=== PATIENT | female | born 1980 | race Caucasian/White ===

== ENCOUNTER 2016-08-13 03:16 | Emergency (ER) | payer SELFPAY ==
[2016-08-13 03:17] VITALS: BMI 37.0
--- NOTE | 2016-08-13 04:23 | C.PDOC ---
History Of Present Illness 36 year old female presents to the ED with complaints of intermittent difficulty swallowing for four days and feeling as though her ears are "covered. " She states she is able to tolerate liquids but when she is eating solids it feels as though they are stuck and can not go down to continue being digested. Patient notes a history of diabetes but states medication ran out 3-4 months ago and has been unable to afford medications. Patient denies any fever, chills , or nausea. Time Seen by Provider: 08/13/16 03:40 Chief Complaint (Nursing): ENT Problem History Per: Patient History/Exam Limitations: None Onset/Duration Of Symptoms: Days (4 days ) Current Symptoms Are (Timing): Still Present Quality (Ear): Other (feels as though they are covered or plugged) Anticoagulant/Antiplatlet Use?: No Recent Aspirin Use: Unknown Past Medical History Reviewed: Historical Data, Nursing Documentation, Vital Signs Vital Signs: Last Vital Signs Temp 97.7 F 08/13/16 06:06 Pulse 102 H 08/13/16 06:06 Resp 18 08/13/16 06:06 BP 109/70 08/13/16 06:06 Pulse Ox 98 08/13/16 07:29 - Medical History PMH: Diabetes, Hyperthyroidism, Hypothyroidism (NO MEDICATIONS AT THIS TIME) - [facility] Procedures BILAT TUBAL DESTRUCT NEC (02/28/14) LOW CERVICAL (02/28/14) Family History: States: Diabetes, Hypertension - Social History Hx Tobacco Use: No Hx Alcohol Use: No Hx Substance Use: No - Immunization History Hx Tetanus Toxoid Vaccination: Yes Hx Influenza Vaccination: Yes Hx Pneumococcal Vaccination: Yes Review Of Systems Constitutional: Negative for: Fever, Chills ENT: Positive for: Ear Pain, Other (difficulty swallowing ) Cardiovascular: Negative for: Chest Pain, Palpitations Respiratory: Negative for: Cough, Shortness of Breath Gastrointestinal: Negative for: Nausea, Vomiting, Abdominal Pain, Diarrhea Physical Exam - Physical Exam Additional Physical Exam Comments: Constitutional: No acute distress. WDWN. Head: Normocephalic. Atraumatic. Eyes: PERRL. EOMI. ENT: Moist mucous membranes. No tonsillar enlargement. no pharyngeal erythema, no exudate. Neck: Supple. Non-tender anterior neck, no tracheal tenderness Cardiovascular: Regular rate and rhythm. Chest: No tenderness. Respiratory: Clear to auscultation bilaterally. GI: Soft. Non-tender. Non-distended. Normoactive bowel sounds. No rebound. No guarding. Back: No CVA or mid-line tenderness. Musculoskeletal: No tenderness or swelling of extremities. Skin: No rash. Neurologic: Alert, no focal deficit. ED Course And Treatment - Laboratory Results Result Diagrams: 08/13/16 04:37 08/13/16 04:37 O2 Sat by Pulse Oximetry: 98 (room air ) - CT Scan/US CT Neck Without Intravenous Contrast Other Rad Studies (CT/US): Read By Radiologist, Radiology Report Reviewed CT/US Interpretation: IMPRESSION: Prominence of the tonsillar tissue, correlate with tonsillitis. Prominent jugular and posterior triangle lymph nodes, likely reactive. Medical Decision Making Medical Decision Making: pt feeling well, in no acute distress, pt with no obstruction in esophagus, will d/c with antibiotic for tonsillitis, re-start on metformin and f[facility]. Disposition Counseled Patient/Family Regarding: Studies Performed, Diagnosis, Need For Followup, Rx Given - Disposition Referrals: [facility] [Outside] [facility] [Outside] Bruce Daniels MD [Staff Provider] - Disposition: HOME/ ROUTINE Disposition Time: 07:18 Condition: STABLE Additional Instructions: [place] los antibiticos y el ibuprofeno segn lo prescrito. Seguir con la clnica mdica y con el mdico de [place] / [place] / [place] en los prximos tidwell. Vuelva al ER para un dolor peor o cualquier otro relacionado con los sntomas. Also take metformin as prescribed. Prescriptions: Amoxicillin 500 mg PO TID #30 tablet Ibuprofen [Motrin] 600 mg PO TID #30 tab MetFORMIN [glucoPHAGE] 500 mg PO BID #60 tab Print Language: MAORI - Clinical Impression Clinical Impression: Acute tonsillitis, Diabetes mellitus - Scribe Statement The provider has reviewed the documentation as recorded by the Scribe Emily Egan All medical record entries made by the Scribe were at my direction and personally dictated by me. I have reviewed the chart and agree that the record accurately reflects my personal performance of the history, physical exam, medical decision making, and the department course for this patient. I have also personally directed, reviewed, and agree with the discharge instructions and disposition.
[2016-08-13 04:45] LABS: BASO % 0.3 % (0.0-2.0); EOS # 0.2 K/uL (0.0-0.7); EOS % 2.9 % (0.0-4.0); HEMATOCRIT 38.9 % (34.0-47.0); LYMPH # 3.4 K/uL (1.0-4.3); LYMPH % 52.1 % (20.0-40.0); MEAN CELL VOLUME 78.7 fL (81.0-99.0); MEAN CORPUSCULAR HEMOGLOBIN 25.7 pg (27.0-31.0); MEAN CORPUSCULAR HGB CONC 32.7 g/dL (33.0-37.0); MEAN PLATELET VOLUME 9.6 fL (7.2-11.7); MONO # 0.6 K/uL (0.0-0.8); MONO % 9.5 % (0.0-10.0); NRBC % 0.1 % (0.0-2.0); RED CELL DISTRIBUTION WIDTH 13.3 % (11.5-14.5); WHITE BLOOD COUNT 6.6 K/uL (4.8-10.8)
[2016-08-13 04:47] LABS: CHLORIDE 101 mmol/L (98-107); POTASSIUM 3.8 mmol/L (3.6-5.2); SODIUM 136 mmol/L (132-148)
[2016-08-13 04:49] LABS: BILIRUBIN,TOTAL 0.6 mg/dL (0.2-1.3); CARBON DIOXIDE 21 mmol/L (22-30); GFR AFRICAN-AMERICAN > 60
[2016-08-13 04:50] LABS: ALB/GLOB RATIO 1.2 (1.0-2.1); ALKALINE PHOSPHATASE 146 U/L (38-126); ALT/SGPT 46 U/L (9-52); AST/SGOT 23 U/L (14-36); BLOOD UREA NITROGEN 13 mg/dL (7-17); CALCIUM 9.1 mg/dl (8.6-10.4); GLUCOSE,RANDOM 187 mg/dL (65-105); TOTAL PROTEIN 6.5 g/dL (6.3-8.3)
[2016-08-13 06:07] VITALS: BP 109/70; PULSE 102; RESP 18; TEMP 97.7
[2016-08-13 07:17] VITALS: O2SAT 98
--- NOTE | 2016-08-13 12:37 | CT ---
PROCEDURE: CT NECK WITHOUT CONTRAST HISTORY: eval for blockage/obstruction COMPARISON: None. TECHNIQUE: CT of the neck without intravenous contrast. Coronal and sagittal reformats generated. Radiation dose: DLP 555.18 mGy-cm This CT exam was performed using one or more of the following dose reduction techniques: Automated exposure control, adjustment of the mA and/or kV according to patient size, and/or use of iterative reconstruction technique. FINDINGS: NASOPHARYNX: Unremarkable. SUPRAHYOID NECK: Unremarkable oropharynx. No foreign body identified. Prominent palatine tonsils. No adenoidal tonsil prominence. Parapharyngeal space is clear. INFRAHYOID NECK: Unremarkable larynx, hypopharynx, and supraglottic space. Vocal cords intact. MASS: None. GLANDS: Parotid and submandibular glands unremarkable. Normal size thyroid gland, without nodule. LYMPH NODES: Shotty level 1 and 2 cervical nodes without significant enlarged nodes identified. CERVICAL SPINE: No fracture or focal lesion. OTHER FINDINGS: None. IMPRESSION: Mild prominence of the palatine tonsils. Please correlate for tonsillitis. No significant cervical lymphadenopathy. Shotty subcentimeter nodes are identified. The remainder of the examination is unremarkable. Preliminary interpretation of this examination was reported by [facility] at 5:14 a.m. on 08/13/2016. There is concurrence of this report with the preliminary interpretation.
== END 2016-08-13 07:33 | disposition home or self-care (01) ==
LOC: C.ER 03:16
DX: J03.90 Acute tonsillitis, unspecified (principal); E11.9 Type 2 diabetes mellitus without complications

== ENCOUNTER 2017-11-24 00:36 | Inpatient (IN) | payer MEDICAID, OTHER ==
[2017-11-24 00:36] VITALS: BMI 37.0
[2017-11-24] MEDS ORDERED: Sodium Chloride 0.9% 1,000 ML ONE ×2 (01:11→01:30)
[2017-11-24] MEDS ORDERED: Vancomycin 1 gm/NS 200 ml 1 GM/200 ML BAG IVPB STA (01:15)
[2017-11-24] MEDS ORDERED: Piperacill/Tazo 4.5gm in Dex 4.5 GM/100 ML BAG IVPB STA (01:15)
[2017-11-24] MEDS ORDERED: Sodium Chloride 0.9% 2,000 ML IV ONE (01:15)
--- NOTE | 2017-11-24 01:15 | C.PDOC ---
History Of Present Illness 37 y/o female presents to the ED complaining of fever and chills since Thursday, worsened today. Associated with a non-productive cough. Patient also states she was taken off thyroid medication for the last 6 months. Otherwise she denies any vomiting, diarrhea, abdominal pain, dysuria, hematuria, chest tightness, or SOB. Time Seen by Provider: 11/24/17 01:14 Chief Complaint (Nursing): Fever History Per: Patient History/Exam Limitations: no limitations Onset/Duration Of Symptoms: Days (x3) Current Symptoms Are (Timing): Still Present Sick Contacts (Context): None Associated Symptoms: Fever, Chills, Cough Ear Symptoms: Bilateral: None Recent travel outside of the [place]: No Past Medical History Reviewed: Historical Data, Nursing Documentation, Vital Signs Vital Signs: Last Vital Signs Temp 103.0 F H 11/24/17 01:05 Pulse 145 H 11/24/17 01:05 Resp 20 11/24/17 01:05 BP 139/67 11/24/17 01:05 Pulse Ox 95 11/24/17 01:05 - Medical History PMH: Diabetes, HTN, Hyperthyroidism, Hypothyroidism (NO MEDICATIONS AT THIS TIME) - [facility] Procedures BILAT TUBAL DESTRUCT NEC (02/28/14) LOW CERVICAL (02/28/14) Family History: States: Diabetes, Hypertension - Social History Hx Tobacco Use: No Hx Alcohol Use: No Hx Substance Use: No - Immunization History Hx Tetanus Toxoid Vaccination: Yes Hx Influenza Vaccination: No Hx Pneumococcal Vaccination: No Review Of Systems Constitutional: Positive for: Fever, Chills Cardiovascular: Negative for: Chest Pain, Palpitations Respiratory: Negative for: Shortness of Breath Gastrointestinal: Negative for: Vomiting, Abdominal Pain, Diarrhea Genitourinary: Negative for: Dysuria, Frequency, Hematuria Neurological: Negative for: Weakness, Dizziness Physical Exam - Physical Exam Appears: Non-toxic, In Acute Distress (appears in moderate discomfort) Skin: Warm, Dry Head: Normacephalic Eye(s): bilateral: Normal Inspection Ear(s): Bilateral: Normal Throat: Normal (OP clear), No Erythema, No Exudate Neck: Trachea Midline, Other (bilateral nodularity of the thyroid, non-tender) Chest: Symmetrical Cardiovascular: Rhythm Regular (but tachycardic) Respiratory: No Rales, Rhonchi (scattered), No Wheezing Gastrointestinal/Abdominal: Bowel Sounds (good), Soft, No Tenderness, No Distention Extremity: Bilateral: Atraumatic, Normal Color And Temperature Pulses: Left Dorsalis Pedis: Normal, Right Dorsalis Pedis: Normal Neurological/Psych: Oriented x3 ED Course And Treatment - Laboratory Results Result Diagrams: 11/24/17 01:24 11/24/17 01:24 ECG: Interpreted By Me, Viewed By Me ECG Rhythm: Sinus Tachycardia (137), Nonspecific Changes O2 Sat by Pulse Oximetry: 95 (RA) Pulse Ox Interpretation: Normal - Radiology CXR: Interpreted by Me, Viewed By Me Progress Note: Blood work, coag panel, thyroid panel, and urine ordered. Blood and urine cultures sent. CXR and EKG ordered and reviewed. Administered IV fluids and Tylenol 975mg PO. Patient started on IV vanco and zosyn. pt developed some itching after vanco - lungs cta, speaking in complete sentences - iv benadryl, pepcid and solumedrol given. Streeter and Wartofsky 's score 55 Critical Care Time - Critical Care Note Total Time (in mins): 30 Documented critical care: time excludes all time spent performing seperately billable procedures. Disposition Discussed With DrBeth: Nils Oconnor Comment: accepted the pt on his service and took over the care at 2:40AM Doctor Will See Patient In The: ED Counseled Patient/Family Regarding: Studies Performed, Diagnosis - Disposition Disposition: HOSPITALIZED Disposition Time: 01:15 Condition: GUARDED - POA Present On Arrival: None - Clinical Impression Clinical Impression: Fever, Hyperthyroidism, Thyroiditis - Scribe Statement The provider has reviewed the documentation as recorded by the Scribe (Pat Casanova) Provider Attestation: All medical record entries made by the Scribe were at my direction and personally dictated by me. I have reviewed the chart and agree that the record accurately reflects my personal performance of the history, physical exam, medical decision making, and the department course for this patient. I have also personally directed, reviewed, and agree with the discharge instructions and disposition. Decision To Admit - Pt Status Changed To: Hospital Disposition Of: Inpatient - Admit Certification Admit to Inpatient:: After my assessment, the patient will require hospitalization for at least two midnights. This is because of the severity of symptoms shown, intensity of services needed, and/or the medical risk in this patient being treated as an outpatient. - InPatient: Physician Admission Certification:: After my assessment, the patient will require hospitalization for at least two midnights. This is because of the severity of symptoms shown, intensity of services needed, and/or the medical risk in this patient being treated as an outpatient. - . Bed Request Type: Regular Patient Diagnosis: Fever, Hyperthyroidism, Thyroiditis
[2017-11-24 01:28] LABS: HEMOGLOBIN 13.3 g/dL (11.0-16.0); RBC 5.06 Mil/uL (3.80-5.20); WHITE BLOOD COUNT 7.6 K/uL (4.8-10.8)
[2017-11-24 01:29] LABS: BASO % 0.2 % (0.0-2.0); EOS # 0.2 K/uL (0.0-0.7); EOS % 2.8 % (0.0-4.0); LYMPH # 1.1 K/uL (1.0-4.3); LYMPH % 14.7 % (20.0-40.0); MEAN CELL VOLUME 77.8 fL (81.0-99.0); MEAN CORPUSCULAR HEMOGLOBIN 26.3 pg (27.0-31.0); MEAN CORPUSCULAR HGB CONC 33.8 g/dL (33.0-37.0); MEAN PLATELET VOLUME 8.9 fL (7.2-11.7); MONO # 0.3 K/uL (0.0-0.8); MONO % 4.1 % (0.0-10.0); NEUT # 5.9 K/uL (1.8-7.0); NEUT % 78.2 % (50.0-75.0); NRBC % 0.4 % (0.0-2.0); RED CELL DISTRIBUTION WIDTH 12.7 % (11.5-14.5)
[2017-11-24] MEDS ORDERED: Vancomycin 1 GM 1 GM/250 ML BAG IVPB ONE (01:30)
[2017-11-24 01:40] LABS: INR 1.1; PROTHROMBIN TIME 12.1 SECONDS (9.7-12.2)
[2017-11-24 01:52] LABS: VENOUS BLOOD GAS BASE EXCESS 0.6 mmol/L (0.0-2.0); VENOUS BLOOD GAS PCO2 36 mmHg (40-60); VENOUS BLOOD GAS PO2 37 mm/Hg (30-55); VENOUS BLOOD PH 7.44 (7.32-7.43)
[2017-11-24 01:58] LABS: ALB/GLOB RATIO 1.3 (1.0-2.1); ALBUMIN 4.2 g/dL (3.5-5.0); ALT/SGPT 73 U/L (9-52); AST/SGOT 36 U/L (14-36); BLOOD UREA NITROGEN 7 mg/dL (7-17); CALCIUM 9.1 mg/dl (8.6-10.4); GFR NON-AFRICAN AMERICAN > 60
[2017-11-24 02:02] LABS: HCG,QUALITATIVE URINE NEGATIVE (NEGATIVE)
[2017-11-24 02:03] LABS: SQUAMOUS EPITHIAL 1 /hpf (0-5); URINE BILIRUBIN NEGATIVE (NEGATIVE); URINE BLOOD NEGATIVE (NEGATIVE); URINE CLARITY Clear (Clear); URINE COLOR Yellow (YELLOW); URINE GLUCOSE (UA) 3+ mg/dL (Normal); URINE LEUKOCYTE ESTERASE NEG Leu/uL (Negative); URINE PROTEIN NEGATIVE (NEGATIVE); URINE UROBILINOGEN NORMAL mg/dL (0.2-1.0)
[2017-11-24] MEDS ORDERED: DiphenhydrAMINE 50 mg/ml Inj IVP STA (02:14)
[2017-11-24] MEDS ORDERED: DiphenhydrAMINE 50 mg/ml Inj ONE (02:18)
[2017-11-24] MEDS ORDERED: Propranolol 1 mg/mL Inj IVP STA (02:29)
[2017-11-24] MEDS ORDERED: Propranolol 1 mg/mL Inj ONE (02:49)
--- NOTE | 2017-11-24 03:00 | CP.PCM.HP ---
<Noreen Veronica - Last Filed: 11/24/17 03:00> History of Present Illness - History of Present Illness History of Present Illness: Noreen Veronica PGY1 H&P for Dr. Oconnor Pt is a 37yo F with PMH DM, HTN, hyperTH who presents to ED complaining of fever, chills, and cough for 3 days. She reports worsening of symptoms today, prompting her to come to ED. She reports taking advil and theraflu at home with little relief. She denies any sick contacts or recent travel. She reports associ ated nausea, palpitations, sweating, and abdominal pain. She denies any chest pain, dizziness, vomiting, diarrhea, dysuria. In the ED, pt was tachycardic at 137 and febrile at 103F. Pt was given IVF, tylenol, vanc, zosyn. She had an allergic reaction to vanc (rash), so it was stopped and she was given solumedrol, benedryl. Pt was given propanalol 40 PO and 1 IV for HR control. SxH: b/l tubal ligation, SocH: denies tobacco, etoh, or recreational drug use FamH: father, brother DM Allergies: NKDA Meds: propanolol 10, methimazol 10 PMD: none Present on Admission - Present on Admission Any Indicators Present on Admission: No Review of Systems - Review of Systems Review of Systems: as per HPI Past Patient History - Infectious Disease Hx of Infectious Diseases: None - Past Social History Smoking Status: Never Smoked - CARDIAC Hx Hypertension: Yes - ENDOCRINE/METABOLIC Hx Hyperthyroidism: Yes Hx Hypothyroidism: Yes (NO MEDICATIONS AT THIS TIME) - PSYCHIATRIC Hx Substance Use: No - SURGICAL HISTORY Hx Section: Yes Hx Hysterectomy: Yes Other/Comment: BTL - ANESTHESIA Hx Anesthesia: Yes Hx Anesthesia Reactions: No Meds Allergies/Adverse Reactions: Allergies Allergy/AdvReac Type Severity Reaction Status Date / Time vancomycin Allergy RASH Verified 11/24/17 02:27 Physical Exam - Constitutional Appears: No Acute Distress - Head Exam Head Exam: ATRAUMATIC, NORMOCEPHALIC - Eye Exam Eye Exam: EOMI, Normal appearance, PERRL Pupil Exam: NORMAL ACCOMODATION - ENT Exam ENT Exam: Mucous Membranes Moist, Normal Exam - Neck Exam Neck exam: Negative for: Lymphadenopathy - Respiratory Exam Respiratory Exam: Clear to Auscultation Bilateral, NORMAL BREATHING PATTERN. absent: Rales, Rhonchi, Wheezes, Respiratory Distress - Cardiovascular Exam Cardiovascular Exam: Tachycardia, REGULAR RHYTHM, +S1, +S2. absent: Gallop, Rubs, Systolic Murmur - GI/Abdominal Exam GI & Abdominal Exam: Normal Bowel Sounds, Soft. absent: Distended, Guarding, Tenderness - Extremities Exam Extremities exam: Positive for: normal inspection. Negative for: pedal edema, tenderness - Neurological Exam Neurological exam: Alert, CN II-XII Intact, Oriented x3 - Psychiatric Exam Psychiatric exam: Normal Affect, Normal Mood - Skin Skin Exam: Diaphoretic, Warm Results - Vital Signs Recent Vital Signs: Last Vital Signs Temp 100.3 F H 11/24/17 02:33 Pulse 137 H 11/24/17 02:33 Resp 20 11/24/17 02:33 BP 105/49 L 11/24/17 02:33 Pulse Ox 95 11/24/17 02:58 - Labs Result Diagrams: 11/24/17 01:24 11/24/17 01:24 Labs: Laboratory Results - last 24 hr 11/24/17 11/24/17 11/24/17 01:24 01:24 01:24 WBC 7.6 RBC 5.06 Hgb 13.3 Hct 39.4 MCV 77.8 L MCH 26.3 L MCHC 33.8 RDW 12.7 Plt Count 131 MPV 8.9 Neut % (Auto) 78.2 H Lymph % (Auto) 14.7 L [place] % (Auto) 4.1 Eos % (Auto) 2.8 Baso % (Auto) 0.2 Neut # (Auto) 5.9 Lymph # (Auto) 1.1 [place] # (Auto) 0.3 Eos # (Auto) 0.2 Baso # (Auto) 0.0 PT 12.1 INR 1.1 APTT 34 pO2 VBG pH VBG pCO2 VBG HCO3 VBG Total CO2 VBG O2 Sat (Calc) VBG Base Excess VBG Potassium Glucose Lactate Sodium 134 Potassium 3.8 Chloride 98 Carbon Dioxide 23 Anion Gap 17 BUN 7 Creatinine 0.3 L Est GFR ( Amer) > 60 Est GFR (Non-Af Amer) > 60 Random Glucose 282 H Calcium 9.1 Phosphorus 3.8 Magnesium 1.5 L Total Bilirubin 0.3 AST 36 D ALT 73 H D Alkaline Phosphatase 214 H Total Protein 7.3 Albumin 4.2 Globulin 3.1 Albumin/Globulin Ratio 1.3 TSH 3rd Generation < 0.02 L Venous Blood Potassium Urine Color Urine Clarity Urine pH Ur Specific [place] Urine Protein Urine Glucose (UA) Urine Ketones Urine Blood Urine Nitrate Urine Bilirubin Urine Urobilinogen Ur Leukocyte Esterase Urine WBC (Auto) Urine RBC (Auto) Ur Squamous Epith Cells Urine HCG, Qual 11/24/17 11/24/17 01:46 01:54 WBC RBC Hgb Hct MCV MCH MCHC RDW Plt Count MPV Neut % (Auto) Lymph % (Auto) [place] % (Auto) Eos % (Auto) Baso % (Auto) Neut # (Auto) Lymph # (Auto) [place] # (Auto) Eos # (Auto) Baso # (Auto) PT INR APTT pO2 37 VBG pH 7.44 H VBG pCO2 36 L VBG HCO3 24.7 VBG Total CO2 25.6 VBG O2 Sat (Calc) 72.4 H VBG Base Excess 0.6 VBG Potassium 3.5 L Glucose 266 H Lactate 1.3 Sodium 132.0 Potassium Chloride 102.0 Carbon Dioxide Anion Gap BUN Creatinine Est GFR ( Amer) Est GFR (Non-Af Amer) Random Glucose Calcium Phosphorus Magnesium Total Bilirubin AST ALT Alkaline Phosphatase Total Protein Albumin Globulin Albumin/Globulin Ratio TSH 3rd Generation Venous Blood Potassium 3.5 L Urine Color Yellow Urine Clarity Clear Urine pH 6.0 Ur Specific [place] 1.030 Urine Protein Negative Urine Glucose (UA) 3+ H Urine Ketones Negative Urine Blood Negative Urine Nitrate Negative Urine Bilirubin Negative Urine Urobilinogen Normal Ur Leukocyte Esterase Neg Urine WBC (Auto) < 1 Urine RBC (Auto) < 1 Ur Squamous Epith Cells 1 Urine HCG, Qual Negative Assessment & Plan - Assessment and Plan (Free Text) Assessment: 37yo F with PMH DM, HTN, hyperTH who presents to ED complaining of fever, chills, and cough and fulfills SIRS criteria. She is admitted for further ev aluation and treatment. Plan: SIRS - Tmax 103F - HR 137 - WBC 7.6 - CXR - EKG sinus tachy - f/u BCx, UCx - f/u procal - UA negative for leuk esterase, nitrates - continue zosyn and ampicillin Hyperthyroid - TSH <0.02 - f/u free T3, free T4 - CT soft tissue neck ordered - US thyroid ordered - Endo consulted, f/u recs Hypomagnesemia - Mg 1.5, repleted - continue to monitor DM - random glucose 282 - sliding scale low protocol - accuchecks q6h PPX: DVT: SCDs GI: pepcid HHD Case reviewed and plan discussed with Dr. Oconnor. <Nils Oconnor - Last Filed: 11/24/17 06:27> Results - Vital Signs Recent Vital Signs: Last Vital Signs Temp 99.8 F H 11/24/17 05:35 Pulse 104 H 11/24/17 05:33 Resp 21 11/24/17 05:20 BP 128/69 11/24/17 05:08 Pulse Ox 95 11/24/17 06:23 - Labs Result Diagrams: 11/24/17 01:24 11/24/17 01:24 Labs: Laboratory Results - last 24 hr 11/24/17 11/24/17 11/24/17 01:05 01:24 01:24 WBC 7.6 RBC 5.06 Hgb 13.3 Hct 39.4 MCV 77.8 L MCH 26.3 L MCHC 33.8 RDW 12.7 Plt Count 131 MPV 8.9 Neut % (Auto) 78.2 H Lymph % (Auto) 14.7 L [place] % (Auto) 4.1 Eos % (Auto) 2.8 Baso % (Auto) 0.2 Neut # (Auto) 5.9 Lymph # (Auto) 1.1 [place] # (Auto) 0.3 Eos # (Auto) 0.2 Baso # (Auto) 0.0 PT 12.1 INR 1.1 APTT 34 pO2 VBG pH VBG pCO2 VBG HCO3 VBG Total CO2 VBG O2 Sat (Calc) VBG Base Excess VBG Potassium Glucose Lactate Sodium Potassium Chloride Carbon Dioxide Anion Gap BUN Creatinine Est GFR ( Amer) Est GFR (Non-Af Amer) POC Glucose (mg/dL) 281 H Random Glucose Calcium Phosphorus Magnesium Total Bilirubin AST ALT Alkaline Phosphatase Total Protein Albumin Globulin Albumin/Globulin Ratio Free T4 Total T3 TSH 3rd Generation Venous Blood Potassium Urine Color Urine Clarity Urine pH Ur Specific [place] Urine Protein Urine Glucose (UA) Urine Ketones Urine Blood Urine Nitrate Urine Bilirubin Urine Urobilinogen Ur Leukocyte Esterase Urine WBC (Auto) Urine RBC (Auto) Ur Squamous Epith Cells Urine HCG, Qual 11/24/17 11/24/17 11/24/17 01:24 01:46 01:54 WBC RBC Hgb Hct MCV MCH MCHC RDW Plt Count MPV Neut % (Auto) Lymph % (Auto) [place] % (Auto) Eos % (Auto) Baso % (Auto) Neut # (Auto) Lymph # (Auto) [place] # (Auto) Eos # (Auto) Baso # (Auto) PT INR APTT pO2 37 VBG pH 7.44 H VBG pCO2 36 L VBG HCO3 24.7 VBG Total CO2 25.6 VBG O2 Sat (Calc) 72.4 H VBG Base Excess 0.6 VBG Potassium 3.5 L Glucose 266 H Lactate 1.3 Sodium 134 132.0 Potassium 3.8 Chloride 98 102.0 Carbon Dioxide 23 Anion Gap 17 BUN 7 Creatinine 0.3 L Est GFR ( Amer) > 60 Est GFR (Non-Af Amer) > 60 POC Glucose (mg/dL) Random Glucose 282 H Calcium 9.1 Phosphorus 3.8 Magnesium 1.5 L Total Bilirubin 0.3 AST 36 D ALT 73 H D Alkaline Phosphatase 214 H Total Protein 7.3 Albumin 4.2 Globulin 3.1 Albumin/Globulin Ratio 1.3 Free T4 Total T3 TSH 3rd Generation < 0.02 L Venous Blood Potassium 3.5 L Urine Color Yellow Urine Clarity Clear Urine pH 6.0 Ur Specific [place] 1.030 Urine Protein Negative Urine Glucose (UA) 3+ H Urine Ketones Negative Urine Blood Negative Urine Nitrate Negative Urine Bilirubin Negative Urine Urobilinogen Normal Ur Leukocyte Esterase Neg Urine WBC (Auto) < 1 Urine RBC (Auto) < 1 Ur Squamous Epith Cells 1 Urine HCG, Qual Negative 11/24/17 11/24/17 11/24/17 03:13 03:13 03:24 WBC RBC Hgb Hct MCV MCH MCHC RDW Plt Count MPV Neut % (Auto) Lymph % (Auto) [place] % (Auto) Eos % (Auto) Baso % (Auto) Neut # (Auto) Lymph # (Auto) [place] # (Auto) Eos # (Auto) Baso # (Auto) PT INR APTT pO2 VBG pH VBG pCO2 VBG HCO3 VBG Total CO2 VBG O2 Sat (Calc) VBG Base Excess VBG Potassium Glucose Lactate Sodium Potassium Chloride Carbon Dioxide Anion Gap BUN Creatinine Est GFR ( Amer) Est GFR (Non-Af Amer) POC Glucose (mg/dL) 215 H Random Glucose Calcium Phosphorus Magnesium Total Bilirubin AST ALT Alkaline Phosphatase Total Protein Albumin Globulin Albumin/Globulin Ratio Free T4 4.05 H Total T3 3.61 H TSH 3rd Generation Venous Blood Potassium Urine Color Urine Clarity Urine pH Ur Specific [place] Urine Protein Urine Glucose (UA) Urine Ketones Urine Blood Urine Nitrate Urine Bilirubin Urine Urobilinogen Ur Leukocyte Esterase Urine WBC (Auto) Urine RBC (Auto) Ur Squamous Epith Cells Urine HCG, Qual Assessment & Plan - Date & Time Date: 11/24/17 (I have seen and examined the patient. I agree with the findings and plan of care as documented by Dr. Veronica. Patient positive for SIRS criteria. Check urine and CXR. Possible thyroiditis. TSH very low. Ampilllicin for now. Vanco and Zosyn for now with some reaction from Vanco. Consult to Endo. Lactate negative. Check Thyroid hormone levels. Monitor for acute changes.) Time: 06:24 Attending/Attestation - Attestation I have personally seen and examined this patient.: Yes I have fully participated in the care of the patient.: Yes I have reviewed all pertinent clinical information: Yes
[2017-11-24] MEDS ORDERED: Magnesium Oxide 400 mg Tab UD PO STA (03:23)
[2017-11-24] MEDS ORDERED: Piperacillin/Tazobact 3.375 GM in Sodium Chloride 100 ML IVPB SCH ×2 (03:30→10:00)
[2017-11-24] MEDS ORDERED: Glucagon Recombinant 1 mg Inj IM PRN (03:31)
[2017-11-24] MEDS ORDERED: Dextrose 50% SYRINGE Inj (50 ml) IV PRN (03:31)
--- NOTE | 2017-11-24 03:43 | CP.PCM.CON ---
History of Present Illness - History of Present Illness History of Present Illness: Attending: Dr Oconnor PMD: None Reason for consult: Critical care Management Chief Complaint: Fever/ Tachycardia/ Chills The patient was seen and examined in the ED with no family member present HPI: The hx is obtainde from the patient and after review of the medical and laboratory records. She is a 37 years old female with hx of DM, Hypo and Hyperthyroidism who referred stop taking her Methimazole for 4-5 years. She told other staff members that she stopped 6 months ago. She comes with 3 days of fever, chills generalized body aches, palpitation, nausea, headache, lightheadedness and a non productive cough. In the ED her Heart Rate was 145 with a temperature of 103F. She wa initially given Antibiotics relating to pulmonary pathology, then the TSH result came as <0.02. PMH: HTN; DM; Hypothyroidism ; hyperthyroidism PSH: Cesarian Section X1; Tubal Ligation? SH: Denies Alcohol; No illegal drug use; No Cigarette Smoking; live with the Family; Work in the [employer] FH: Father and Brother with DM Allergies: NKDA Allergic reaction to Vancomycin in the ED tonight Medication: Propranol 10mg TID; Methimazole 10mg TID Review of Systems - Constitutional Constitutional: Chills, Fever, Headache - EENT Eyes: absent: Blurred Vision, Diplopia, Floaters, Requires Corrective Lenses Ears: absent: Decreased Hearing, Ear Discharge, Tinnitus Nose/Mouth/Throat: absent: Epistaxis, Nasal Congestion, Sinus Pain, Sinus Pressure - Cardiovascular Cardiovascular: Lightheadedness. absent: Chest Pain, Dyspnea, Edema - Respiratory Respiratory: Cough. absent: Dyspnea, Wheezing, Stridor - Gastrointestinal Gastrointestinal: Nausea. absent: Abdominal Pain, Diarrhea, Vomiting - Genitourinary Genitourinary: absent: Dysuria, Flank Pain, Urinary Frequency - Musculoskeletal Musculoskeletal: Myalgias. absent: Back Pain, Joint Swelling - Integumentary Integumentary: Pruritus, Rash. absent: Skin Ulcer, Sores, Striae, Swelling - Neurological Neurological: Headaches. absent: Confusion, Focal Weakness - Psychiatric Psychiatric: absent: Anxiety, Depression, Panic Attacks - Endocrine Endocrine: Palpitations. absent: Polydipsia, Polyphagia, Polyuria - Hematologic/Lymphatic Hematologic: absent: Easy Bleeding, Easy Bruising Past Patient History - Infectious Disease Hx of Infectious Diseases: None - Past Medical History & Family History Past Medical History?: Yes - Past Social History Smoking Status: Never Smoked Chewing Tobacco Use: No Cigar Use: No Alcohol: None Drugs: Denies Home Situation {Lives}: With Family - CARDIAC Hx Hypertension: Yes - PULMONARY Hx Respiratory Disorders: No - NEUROLOGICAL Hx Neurological Disorder: No - HEENT Hx HEENT Problems: No - RENAL Hx Chronic Kidney Disease: No - ENDOCRINE/METABOLIC Hx Diabetes Mellitus Type 2: Yes Hx Hyperthyroidism: Yes Hx Hypothyroidism: Yes (NO MEDICATIONS AT THIS TIME) - HEMATOLOGICAL/ONCOLOGICAL Hx Blood Disorders: No - INTEGUMENTARY Hx Dermatological Problems: No - MUSCULOSKELETAL/RHEUMATOLOGICAL Hx Musculoskeletal Disorders: No - GASTROINTESTINAL Hx Gastrointestinal Disorders: No - GENITOURINARY/GYNECOLOGICAL Hx Genitourinary Disorders: No - PSYCHIATRIC Hx Anxiety: No Hx Substance Use: No - SURGICAL HISTORY Hx Surgeries: Yes Hx Section: Yes Hx Hysterectomy: Yes Other/Comment: BTL - ANESTHESIA Hx Anesthesia: Yes Hx Anesthesia Reactions: No Meds Allergies/Adverse Reactions: Allergies Allergy/AdvReac Type Severity Reaction Status Date / Time vancomycin Allergy RASH Verified 11/24/17 02:27 - Medications Medications: Current Medications Acetaminophen (Tylenol 325mg Tab) 975 mg PO ONCE PRN PRN Reason: Fever >100.4 F Last Admin: 11/24/17 01:33 Dose: 975 mg Dextrose (Dextrose 50% Inj) 0 ml IV STAT PRN; Protocol PRN Reason: Hypoglycemia Protocol Dextrose (Glutose 15) 0 gm PO ONCE PRN; Protocol PRN Reason: Hypoglycemia Protocol Famotidine (Pepcid) 40 mg PO DAILY [facility] Glucagon (Glucagen Diagnostic Kit) 0 mg IM STAT PRN; Protocol PRN Reason: Hypoglycemia Protocol Ampicillin 250 mg/ Sodium (Chloride) 100 mls @ 100 mls/hr IVPB Q8H [facility]; Protocol Piperacillin Sod/Tazobactam (Sod 3.375 gm/ Sodium Chloride) 100 mls @ 200 mls/hr IVPB Q8H [facility]; Protocol Dextrose (Dextrose 5% In Water 1000 Ml) 1,000 mls @ 0 mls/hr IV .Q0M PRN; Protocol PRN Reason: Hypoglycemia Protocol Piperacillin Sod/Tazobactam (Sod 3.375 gm/ Sodium Chloride) 100 mls @ 200 mls/hr IVPB Q8H [facility]; Protocol Insulin Human Regular (Novolin R) 0 unit SC ACHS [facility]; Protocol Magnesium Oxide (Mag-Ox) 400 mg PO STAT STA Stop: 11/24/17 03:24 Ondansetron HCl (Zofran Tab) 4 mg PO Q8H PRN PRN Reason: Nausea/Vomiting Propranolol HCl (Inderal) 10 mg PO TID [facility] Physical Exam - Constitutional Appears: No Acute Distress - Head Exam Head Exam: ATRAUMATIC, NORMAL INSPECTION, NORMOCEPHALIC - Eye Exam Eye Exam: EOMI, Normal appearance - ENT Exam ENT Exam: Mucous Membranes Moist, Normal Exam, Normal External Ear Exam - Neck Exam Neck exam: Positive for: Full Rom, Normal Inspection. Negative for: Lymphadeno erica, Tenderness - Respiratory Exam Respiratory Exam: Clear to Auscultation Bilateral. absent: Rales, Rhonchi, Wheezes - Cardiovascular Exam Cardiovascular Exam: Tachycardia, REGULAR RHYTHM, +S1, +S2 - GI/Abdominal Exam GI & Abdominal Exam: Normal Bowel Sounds, Soft. absent: Mass, Organomegaly, Tenderness - Rectal Exam Rectal Exam: Deferred - Extremities Exam Extremities exam: Positive for: full ROM, normal inspection. Negative for: calf tenderness, pedal edema - Back Exam Back exam: NORMAL INSPECTION. absent: CVA tenderness (L), CVA tenderness (R) - Neurological Exam Neurological exam: Alert, CN II-XII Intact, Oriented x3, Reflexes Normal - Psychiatric Exam Psychiatric exam: Normal Affect, Normal Mood - Skin Skin Exam: Dry, Intact, Normal Color, Warm Results - Vital Signs Recent Vital Signs: Last Vital Signs Temp 101.0 F H 11/24/17 03:32 Pulse 119 H 11/24/17 03:32 Resp 20 11/24/17 03:32 BP 112/59 L 11/24/17 03:32 Pulse Ox 99 11/24/17 03:32 - Labs Result Diagrams: 11/24/17 01:24 11/24/17 01:24 Labs: Laboratory Results - last 24 hr 11/24/17 11/24/17 11/24/17 01:05 01:24 01:24 WBC 7.6 RBC 5.06 Hgb 13.3 Hct 39.4 MCV 77.8 L MCH 26.3 L MCHC 33.8 RDW 12.7 Plt Count 131 MPV 8.9 Neut % (Auto) 78.2 H Lymph % (Auto) 14.7 L Meagher % (Auto) 4.1 Eos % (Auto) 2.8 Baso % (Auto) 0.2 Neut # (Auto) 5.9 Lymph # (Auto) 1.1 Meagher # (Auto) 0.3 Eos # (Auto) 0.2 Baso # (Auto) 0.0 PT 12.1 INR 1.1 APTT 34 pO2 VBG pH VBG pCO2 VBG HCO3 VBG Total CO2 VBG O2 Sat (Calc) VBG Base Excess VBG Potassium Glucose Lactate Sodium Potassium Chloride Carbon Dioxide Anion Gap BUN Creatinine Est GFR ( Amer) Est GFR (Non-Af Amer) POC Glucose (mg/dL) 281 H Random Glucose Calcium Phosphorus Magnesium Total Bilirubin AST ALT Alkaline Phosphatase Total Protein Albumin Globulin Albumin/Globulin Ratio TSH 3rd Generation Venous Blood Potassium Urine Color Urine Clarity Urine pH Ur Specific [place] Urine Protein Urine Glucose (UA) Urine Ketones Urine Blood Urine Nitrate Urine Bilirubin Urine Urobilinogen Ur Leukocyte Esterase Urine WBC (Auto) Urine RBC (Auto) Ur Squamous Epith Cells Urine HCG, Qual 11/24/17 11/24/17 11/24/17 01:24 01:46 01:54 WBC RBC Hgb Hct MCV MCH MCHC RDW Plt Count MPV Neut % (Auto) Lymph % (Auto) Meagher % (Auto) Eos % (Auto) Baso % (Auto) Neut # (Auto) Lymph # (Auto) Meagher # (Auto) Eos # (Auto) Baso # (Auto) PT INR APTT pO2 37 VBG pH 7.44 H VBG pCO2 36 L VBG HCO3 24.7 VBG Total CO2 25.6 VBG O2 Sat (Calc) 72.4 H VBG Base Excess 0.6 VBG Potassium 3.5 L Glucose 266 H Lactate 1.3 Sodium 134 132.0 Potassium 3.8 Chloride 98 102.0 Carbon Dioxide 23 Anion Gap 17 BUN 7 Creatinine 0.3 L Est GFR ( Amer) > 60 Est GFR (Non-Af Amer) > 60 POC Glucose (mg/dL) Random Glucose 282 H Calcium 9.1 Phosphorus 3.8 Magnesium 1.5 L Total Bilirubin 0.3 AST 36 D ALT 73 H D Alkaline Phosphatase 214 H Total Protein 7.3 Albumin 4.2 Globulin 3.1 Albumin/Globulin Ratio 1.3 TSH 3rd Generation < 0.02 L Venous Blood Potassium 3.5 L Urine Color Yellow Urine Clarity Clear Urine pH 6.0 Ur Specific [place] 1.030 Urine Protein Negative Urine Glucose (UA) 3+ H Urine Ketones Negative Urine Blood Negative Urine Nitrate Negative Urine Bilirubin Negative Urine Urobilinogen Normal Ur Leukocyte Esterase Neg Urine WBC (Auto) < 1 Urine RBC (Auto) < 1 Ur Squamous Epith Cells 1 Urine HCG, Qual Negative 11/24/17 03:24 WBC RBC Hgb Hct MCV MCH MCHC RDW Plt Count MPV Neut % (Auto) Lymph % (Auto) Meagher % (Auto) Eos % (Auto) Baso % (Auto) Neut # (Auto) Lymph # (Auto) Meagher # (Auto) Eos # (Auto) Baso # (Auto) PT INR APTT pO2 VBG pH VBG pCO2 VBG HCO3 VBG Total CO2 VBG O2 Sat (Calc) VBG Base Excess VBG Potassium Glucose Lactate Sodium Potassium Chloride Carbon Dioxide Anion Gap BUN Creatinine Est GFR ( Amer) Est GFR (Non-Af Amer) POC Glucose (mg/dL) 215 H Random Glucose Calcium Phosphorus Magnesium Total Bilirubin AST ALT Alkaline Phosphatase Total Protein Albumin Globulin Albumin/Globulin Ratio TSH 3rd Generation Venous Blood Potassium Urine Color Urine Clarity Urine pH Ur Specific [place] Urine Protein Urine Glucose (UA) Urine Ketones Urine Blood Urine Nitrate Urine Bilirubin Urine Urobilinogen Ur Leukocyte Esterase Urine WBC (Auto) Urine RBC (Auto) Ur Squamous Epith Cells Urine HCG, Qual - Imaging and Cardiology Chest x-ray Status: Image reviewed by me Additional comment: No infiltrate Assessment & Plan - Assessment and Plan (Free Text) Assessment: #. Hyerthyroidism with Thyroid Storm #. DM II uncontrolled #. Hypomagnesemia #. HTN Plan: 37 years old female with hx of DM, Hypo and Hyperthyroidism who referred stop t aking her Methimazole for 4-5 years. She told other staff members that she stopped 6 months ago. She comes with 3 days of fever, chills generalized body aches, palpitation, nausea, headache, lightheadedness and a non productive cough. In the ED her Heart Rate was 145 with a temperature of 103F. She wa initially given Antibiotics relating to pulmonary pathology, then the TSH result came as <0.02. #. Hyerthyroidism with Thyroid Storm - Consult Endocrinology Dr Espinoza - Tylenol for Fever - Propranolol 40mg Q6 - Methimazole 20mg Q6H -Hydrocortisone 100MG Q8H - IV Fluid NS #. DM II uncontrolled - IV Fluid NS - Regular Insulin sliding scale according to Accucheck - HbA1c #. Hypomagnesemia - Repleat Magnesium - Follow Electrolytes #. HTN - Follow Blood Pressures #. DVT Prophylaxis with SCD #. Full Code - Date & Time Date: 11/24/17 Time: 03:43
[2017-11-24] MEDS ORDERED: Dextrose 5%/0.45% NS 1,000 ML IV SCH (04:15)
[2017-11-24] MEDS ORDERED: (Novolin R) Insulin Human Regular 100 units/ml vial SC SCH (07:30)
--- NOTE | 2017-11-24 08:42 | RAD ---
Date of service: 11/24/2017 HISTORY: cough, fever COMPARISON: No prior. FINDINGS: LUNGS: No active pulmonary disease. PLEURA: No significant pleural effusion identified, no pneumothorax apparent. CARDIOVASCULAR: Normal. OSSEOUS STRUCTURES: No significant abnormalities. VISUALIZED UPPER ABDOMEN: Normal. OTHER FINDINGS: None. IMPRESSION: No active disease.
--- NOTE | 2017-11-24 08:54 | CP.PCM.PN ---
Subjective - Date & Time of Evaluation Date of Evaluation: 11/24/17 Time of Evaluation: 08:45 - Subjective Subjective: Seen and examined this morning. Patient is feeling better. Has mild neck pain.Mild cough,denies chest pain,no sob,no throat pain Patient has history of hyperthyroidism and takes Methimazole 10mg three times day and Propranolol 10mg three times a day. Objective - Vital Signs/Intake and Output Vital Signs (last 24 hours): Temp Pulse Resp BP Pulse Ox 99.8 F H 104 H 21 128/69 95 11/24/17 05:35 11/24/17 05:33 11/24/17 05:20 11/24/17 05:08 11/24/17 06:23 Intake and Output: 11/24/17 11/24/17 06:59 18:59 Intake Total 250 125 Balance 250 125 - Medications Medications: Current Medications Acetaminophen (Tylenol 325mg Tab) 975 mg PO ONCE PRN PRN Reason: Fever >100.4 F Last Admin: 11/24/17 01:33 Dose: 975 mg Acetaminophen (Tylenol 325mg Tab) 650 mg PO Q6 PRN PRN Reason: Fever >100.4 F Dextrose (Dextrose 50% Inj) 0 ml IV STAT PRN; Protocol PRN Reason: Hypoglycemia Protocol Dextrose (Glutose 15) 0 gm PO ONCE PRN; Protocol PRN Reason: Hypoglycemia Protocol Famotidine (Pepcid) 40 mg PO DAILY [facility] Glucagon (Glucagen Diagnostic Kit) 0 mg IM STAT PRN; Protocol PRN Reason: Hypoglycemia Protocol Hydrocortisone Sodium Succinate (Solu-Cortef) 100 mg IV Q8H [facility] Last Admin: 11/24/17 05:43 Dose: Not Given Ampicillin 250 mg/ Sodium (Chloride) 100 mls @ 100 mls/hr IVPB Q8H [facility]; Protocol Last Admin: 11/24/17 03:50 Dose: 100 mls/hr Dextrose (Dextrose 5% In Water 1000 Ml) 1,000 mls @ 0 mls/hr IV .Q0M PRN; Protocol PRN Reason: Hypoglycemia Protocol Dextrose/Sodium Chloride (Dextrose 5%/0.45% Ns 1000 Ml) 1,000 mls @ 125 mls/hr IV .Q8H [facility] Last Admin: 11/24/17 04:16 Dose: 125 mls/hr Insulin Human Regular (Novolin R) 0 unit SC ACHS [facility]; Protocol Last Admin: 11/24/17 08:26 Dose: 3 u Methimazole (Tapazole) 20 mg PO Q6H [facility] Last Admin: 11/24/17 04:16 Dose: 20 mg Ondansetron HCl (Zofran Tab) 4 mg PO Q8H PRN PRN Reason: Nausea/Vomiting Propranolol HCl (Inderal) 40 mg PO Q6H [facility] - Labs Labs: 11/24/17 01:24 11/24/17 01:24 PT 12.1 SECONDS (9.7-12.2) 11/24/17 01:24 INR 1.1 11/24/17 01:24 APTT 34 SECONDS (21-34) 11/24/17 01:24 - Constitutional Appears: No Acute Distress - Head Exam Head Exam: NORMAL INSPECTION - Eye Exam Eye Exam: EOMI, Normal appearance, PERRL Pupil Exam: NORMAL ACCOMODATION - ENT Exam ENT Exam: Mucous Membranes Moist - Neck Exam Neck Exam: Full ROM, Normal Inspection - Respiratory Exam Respiratory Exam: Clear to Ausculation Bilateral, NORMAL BREATHING PATTERN - Cardiovascular Exam Cardiovascular Exam: Tachycardia, REGULAR RHYTHM - GI/Abdominal Exam GI & Abdominal Exam: Soft, Normal Bowel Sounds - Extremities Exam Extremities Exam: Full ROM - Back Exam Back Exam: NORMAL INSPECTION - Neurological Exam Neurological Exam: Awake, Oriented x3 - Psychiatric Exam Psychiatric exam: Normal Affect, Normal Mood - Skin Skin Exam: Dry, Intact Assessment and Plan - Assessment and Plan (Free Text) Assessment: This is a 37years F with PMH DM, HTN, hyperthyroidism on Methimazole and propranolol who presents to ED complaining of fever, chills, and cough for 3 days. On admission patient had temp max 103F and tachycardia. she was admitted to ICU for observation Plan: 1.Thyroid storm Improving s/p Fever and tachycardia TSH <0.02,Free T4 4.05,T3 3.61 continue Methimazole 20mg po q6h,Propranolol 40 q6h 2.Hyperthyroidism continue Methimazole and follow Dr Espinoza 3.DM-Poorly controlled Her HA1c is 9.8 patient was not on medication started on lantus.continue insulin coverage follow sugar,diabetic diet 4.Fever/Recent cough Urine is negative for infection,chest x ray without infiltrate follow cultures to r/o infection Continue ampicillin,hydration 5.DVT prophylaxis-heparin Sc GI prophylaxis is on pepcid
[2017-11-24] MEDS: AMPicillin 250 MG in Sodium Chloride 0.9% 100 ML IVPB SCH ×2 (11:13→18:07)
[2017-11-24] MEDS ORDERED: (Novolog) Insulin Aspart, Recombinant 100 u/ml 10 ml vial SC ONE (11:31)
[2017-11-24] MEDS: (Novolin R) Insulin Human Regular 100 units/ml vial SC SCH ×3 (12:00→21:30)
--- NOTE | 2017-11-24 13:19 | US ---
Date of service: 11/24/2017 HISTORY: hyperthyroid TECHNIQUE: Sonographic evaluation of the thyroid gland. COMPARISON: Not available FINDINGS: RIGHT LOBE: Measures 5.9 x 2.6 x 2.5 cm. Homogeneous echotexture. Mild increased vascularity. Nodules: Hypoechoic solid nodule mid right lobe, 3 x 7 x 7 mm. No suspicious features. No other mass identified. LEFT LOBE: Measures 5.7 x 2.3 x 2.3 cm. Homogeneous echotexture. Mild increased vascularity. Nodules: None ISTHMUS: Measures 0.9 cm. Normal echotexture and flow. Nodules: None OTHER FINDINGS: None . IMPRESSION: Mild thyromegaly. Mildly hypervascular gland, nonspecific. 7 mm solid nodule mid right lobe of thyroid. Otherwise unremarkable.
--- NOTE | 2017-11-24 22:01 | CON ---
DATE: 11/24/2017 LOCATION: ICU, Room 6. HISTORY OF PRESENT ILLNESS: This is a 37-year-old female with known history of hyperthyroidism, previously on high dose methimazole medications some years ago, and apparently was taken off the above medications and switched over to Levophed replacement therapy as noted thereof. She admits to increasing bouts of dizziness and lightheadedness with generalized body weakness and pertaining chest pains and palpitations with progressive shortness of breath over the last few weeks prior to admission. She also admits to sudden onset of high fever with chills and rigors and productive cough prompting this subsequent admission. PAST MEDICAL HISTORY: As mentioned above, history of Graves disease with hyperthyroidism. Previously on high dose methimazole therapy. Apparently, her thyroid studies improved as noted. She developed eventual hypothyroidism based on Levothyroxine therapy which eventually discontinued because of again improved therapeutic levels as noted. She has type 2 diabetes previously on oral hypoglycemic therapy but has been off medications for few months now as noted. FAMILY HISTORY: Positive for hypertension and heart disease. SOCIAL HISTORY: The patient has a supportive family. No known substance use. REVIEW OF SYSTEMS: As mentioned above, admits to generalized body weakness with increasing bouts of dizziness and lightheadedness with bifrontal headaches as noted. Also admits to marked disrupted sleep patterns, worse in the last few weeks. The patient admits to sudden onset of precordial chest pain with palpitations and progressive shortness of breath, especially on exertion. Her oral intake has been variable with nausea and dyspepsia and hyper defecation. Also with exotic bouts of tremors in both upper and lower extremities. PHYSICAL EXAMINATION: GENERAL: This is an average built female, in no apparent distress. VITAL SIGNS: Blood pressure 140/80, pulse of 110 beats per minute and regular, temperature 103 on admission, respirations 20, height is 5 feet, weight 140 pounds. HEENT: Head is normocephalic. Eyes anicteric with pink conjunctivae. Funduscopy not possible at this time. Ears, nose, and throat, otherwise, normal. NECK: Supple. Thyroid gland is firm and nontender with no overt palpable nodules as noted. HEART: Hyperdynamic precordium. S1, S2 rapid and regular. LUNGS: Clear to auscultation. ABDOMEN: Flat and soft with positive bowel sounds. EXTREMITIES: No peripheral edema. Pulses are +2 bilaterally. LABORATORY DATA: Her hemoglobin A1c is 9.8% with glucose levels now at 295 to 497 and over 500 mg/dL with intercurrent IV steroids as given empirically. Chemistry showed a BUN of 7, sodium 134, potassium 3.8, chloride 98, CO2 23, glucose 282, creatinine 0.3, free T4 is 4.05 with a TSH of less than 0.02. ASSESSMENT: This is a 37-year-old female with overt thyrotoxicosis presenting here with marked hyperthyroidism, both historically, clinically, and biochemically, most likely related to Graves disease. However with the recent history of hypothyroidism, there also is a rare and remote possibility of having both thyroid antibodies, predisposing the patient to have the so called hashitoxicosis or a combination of both Linn and Grave's disease or autoimmune thyroiditis, predisposing the patient as mentioned to both hyperthyroidism and hypothyroidism in the lifetime. With the patient's aforementioned hyperadrenergic presentation with fever and rigors and chills and tachycardia, she clearly has thyroid crisis or near thyroid storm as noted thereof. PLAN OF MANAGEMENT: We will continue the suprapharmacologic dosing of Tapazole given as 20 mg every 6 hours and obtain a total thyroxine level or T4 which is more indicative of degree of hyperthyroidism than obtaining a free T4 level. We will obtain a thyroid peroxidase antibody and a thyroglobulin and also a thyroid stimulating immunoglobulin which will confirm the presence of the aforementioned thyroid conditions as noted. We will continue the beta blockade as given. We will follow and advised accordingly. Azul Espinoza MD
[2017-11-24] MEDS: (Lantus) Insulin Glargine, Recombinant SC SCH (22:10)
[2017-11-25] MEDS: AMPicillin 250 MG in Sodium Chloride 0.9% 100 ML IVPB SCH (03:45)
[2017-11-25 06:33] LABS: BASO % 0.2 % (0.0-2.0); EOS # 0.2 K/uL (0.0-0.7); EOS % 3.9 % (0.0-4.0); HEMOGLOBIN 13.1 g/dL (11.0-16.0); LYMPH % 21.4 % (20.0-40.0); MEAN CELL VOLUME 77.7 fL (81.0-99.0); MEAN CORPUSCULAR HEMOGLOBIN 26.4 pg (27.0-31.0); MEAN CORPUSCULAR HGB CONC 33.9 g/dL (33.0-37.0); MEAN PLATELET VOLUME 9.3 fL (7.2-11.7); MONO # 0.3 K/uL (0.0-0.8); MONO % 6.6 % (0.0-10.0); NEUT # 3.1 K/uL (1.8-7.0); NEUT % 67.9 % (50.0-75.0); NRBC % 0.1 % (0.0-2.0); RBC 4.96 Mil/uL (3.80-5.20); RED CELL DISTRIBUTION WIDTH 12.9 % (11.5-14.5); WHITE BLOOD COUNT 4.6 K/uL (4.8-10.8)
[2017-11-25 06:55] LABS: ALB/GLOB RATIO 1.2 (1.0-2.1); ALBUMIN 3.7 g/dL (3.5-5.0); ALT/SGPT 112 U/L (9-52); AST/SGOT 108 U/L (14-36); BLOOD UREA NITROGEN 14 mg/dL (7-17); CALCIUM 8.5 mg/dl (8.6-10.4); GFR NON-AFRICAN AMERICAN > 60
[2017-11-25 07:09] LABS: T4 23.4 ug/dL (5.5-11.0)
[2017-11-25] MEDS: (Novolin R) Insulin Human Regular 100 units/ml vial SC SCH ×5 (08:01→21:22)
[2017-11-25] MEDS ORDERED: DiphenhydrAMINE 50 mg/ml Inj IVP STA (09:25)
[2017-11-25] MEDS ORDERED: Sodium Chloride 0.9% 1,000 ML IV SCH (10:15)
[2017-11-25] MEDS: Saccharomyces Boulardi 250 mg Cap PO SCH ×2 (11:09→17:48)
[2017-11-25] MEDS ORDERED: Sodium Chloride 0.9% 500 ML IV ONE (11:44)
[2017-11-25] MEDS: Sodium Chloride 0.9% 1,000 ML IV SCH ×3 (12:30→21:03)
--- NOTE | 2017-11-25 15:51 | CT ---
Date of service: 11/25/17 CT abdomen and pelvis without IV contrast Indication: Rule out cholecystitis Technique: Contiguous axial images of the abdomen and pelvis. No oral or IV contrast administered. Coronal and Sagittal reformats generated and reviewed. This CT exam was performed using 1 or more of the following dose reduction techniques: Automated exposure control, adjustment of the MAA and/or kV according to patient size, and/or use of iterative reconstruction technique. Radiation dose: Total exam DLP = 660.18 mGy-cm. Comparison: None available Findings: 3 mm right middle lobe nodule. 7 mm and 6 mm left lower lobe pulmonary nodules. No visible consolidation, pleural effusion, or pneumothorax. The noncontrast liver, spleen, kidneys, pancreas, adrenal glands, and gallbladder appear grossly unremarkable. The stomach is nondistended. Lack of oral contrast limits evaluation for bowel pathology. The bowel loops appear within normal limits of caliber without evidence of intestinal obstruction. The appendix appears within normal limits of caliber. No secondary signs of acute appendicitis. There is no definite free air. Uterus is present. The urinary bladder appears unremarkable. No acute osseous abnormality is detected. Impression: There are multiple solid pulmonary nodules identified at the included lung bases as above. CT of the chest is not available. Recommend correlation with prior outside imaging if available. According to 2017 Fleischner criteria, if the patient is low risk, CT at 3-6 months is recommended, then consider CT at 18-24 months. The patient is high risk, CT at 3-6 months is recommended, then at 18-24 months.
--- NOTE | 2017-11-25 16:20 | CARD ---
APPROVED REPORT Date of service: 11/24/2017 EKG Measurement Heart [id number] <Conclusion> Sinus tachycardia Otherwise normal
--- NOTE | 2017-11-25 17:14 | CP.PCM.CON ---
History of Present Illness - History of Present Illness History of Present Illness: She is a 37 years old female admitted with 3 days of fever, chills generalized body aches, palpitation, nausea, headache, lightheadedness and a non productive cough. In the ED her Heart Rate was 145 with a temperature of 103F. started on Vanco/ zosyn then developed rashes abnormal CT chest noted- ? nodules PMH: HTN; DM; Hypothyroidism ; hyperthyroidism PSH: Cesarian Section X1; Tubal Ligation? SH: Denies Alcohol; No illegal drug use; No Cigarette Smoking; live with the Family; Work in the [employer] FH: Father and Brother with DM Allergies: NKDA Allergic reaction ? zosyn ampicillin Review of Systems - Constitutional Constitutional: Chills, Fever, Headache - EENT Eyes: absent: Blurred Vision, Diplopia, Floaters, Requires Corrective Lenses Ears: absent: Decreased Hearing, Ear Discharge, Tinnitus Nose/Mouth/Throat: absent: Epistaxis, Nasal Congestion, Sinus Pain, Sinus Pressure - Cardiovascular Cardiovascular: Lightheadedness. absent: Chest Pain, Dyspnea, Edema - Respiratory Respiratory: Cough. absent: Dyspnea, Wheezing, Stridor - Gastrointestinal Gastrointestinal: Nausea. absent: Abdominal Pain, Diarrhea, Vomiting - Genitourinary Genitourinary: absent: Dysuria, Flank Pain, Urinary Frequency - Musculoskeletal Musculoskeletal: Myalgias. absent: Back Pain, Joint Swelling - Integumentary Integumentary: Pruritus, Rash. absent: Skin Ulcer, Sores, Striae, Swelling - Neurological Neurological: Headaches. absent: Confusion, Focal Weakness - Psychiatric Psychiatric: absent: Anxiety, Depression, Panic Attacks - Endocrine Endocrine: Palpitations. absent: Polydipsia, Polyphagia, Polyuria - Hematologic/Lymphatic Hematologic: absent: Easy Bleeding, Easy Bruising Past Patient History - Infectious Disease Hx of Infectious Diseases: None - Past Medical History & Family History Past Medical History?: Yes - Past Social History Smoking Status: Never Smoked - CARDIAC Hx Hypertension: Yes - PULMONARY Hx Respiratory Disorders: No - NEUROLOGICAL Hx Neurological Disorder: No - HEENT Hx HEENT Problems: No - RENAL Hx Chronic Kidney Disease: No - ENDOCRINE/METABOLIC Hx Hyperthyroidism: Yes Hx Hypothyroidism: Yes (NO MEDICATIONS AT THIS TIME) - HEMATOLOGICAL/ONCOLOGICAL Hx Blood Disorders: No - INTEGUMENTARY Hx Dermatological Problems: No - MUSCULOSKELETAL/RHEUMATOLOGICAL Hx Musculoskeletal Disorders: No Hx Falls: No - GASTROINTESTINAL Hx Gastrointestinal Disorders: No - GENITOURINARY/GYNECOLOGICAL Hx Genitourinary Disorders: No - PSYCHIATRIC Hx Substance Use: No - SURGICAL HISTORY Hx Surgeries: Yes Hx Section: Yes Hx Hysterectomy: Yes Other/Comment: BTL - ANESTHESIA Hx Anesthesia: Yes Hx Anesthesia Reactions: No Meds Allergies/Adverse Reactions: Allergies Allergy/AdvReac Type Severity Reaction Status Date / Time ampicillin Allergy RASH Verified 11/25/17 09:22 vancomycin Allergy RASH Verified 11/24/17 02:27 - Medications Medications: Current Medications Acetaminophen (Tylenol 325mg Tab) 975 mg PO ONCE PRN PRN Reason: Fever >100.4 F Last Admin: 11/25/17 07:17 Dose: 975 mg Dextrose (Dextrose 50% Inj) 0 ml IV STAT PRN; Protocol PRN Reason: Hypoglycemia Protocol Dextrose (Glutose 15) 0 gm PO ONCE PRN; Protocol PRN Reason: Hypoglycemia Protocol Diphenhydramine HCl (Benadryl) 25 mg PO Q6 PRN PRN Reason: Itching / Pruritus Last Admin: 11/25/17 16:36 Dose: 25 mg Famotidine (Pepcid) 40 mg PO DAILY [facility] Last Admin: 11/25/17 12:53 Dose: Not Given Glucagon (Glucagen Diagnostic Kit) 0 mg IM STAT PRN; Protocol PRN Reason: Hypoglycemia Protocol Heparin Sodium (Porcine) (Heparin) 5,000 units SC Q8 [facility] Last Admin: 11/25/17 14:21 Dose: 5,000 units Dextrose (Dextrose 5% In Water 1000 Ml) 1,000 mls @ 0 mls/hr IV .Q0M PRN; Protocol PRN Reason: Hypoglycemia Protocol Sodium Chloride (Sodium Chloride 0.9%) 1,000 mls @ 150 mls/hr IV .Q6H40M [facility] Last Admin: 11/25/17 12:30 Dose: 150 mls/hr Ibuprofen (Motrin Tab) 600 mg PO QID PRN PRN Reason: Fever >100.4 F Last Admin: 11/25/17 16:32 Dose: 600 mg Insulin Glargine (Lantus) 20 unit SC HS [facility] Last Admin: 11/24/17 22:10 Dose: 20 u Insulin Human Regular (Novolin R) 0 unit SC ACHS [facility]; Protocol Last Admin: 11/25/17 16:33 Dose: 2 u Methimazole (Tapazole) 20 mg PO Q6H [facility] Last Admin: 11/25/17 16:33 Dose: 20 mg Ondansetron HCl (Zofran Tab) 4 mg PO Q8H PRN PRN Reason: Nausea/Vomiting Propranolol HCl (Inderal) 40 mg PO Q6H [facility] Last Admin: 11/25/17 10:30 Dose: Not Given Saccharomyces Boulardii (Florastor) 250 mg PO BID [facility] Last Admin: 11/25/17 11:09 Dose: 250 mg Physical Exam - Constitutional Appears: No Acute Distress - Head Exam Head Exam: ATRAUMATIC, NORMOCEPHALIC - Eye Exam Eye Exam: absent: Scleral icterus - ENT Exam ENT Exam: Mucous Membranes Dry - Neck Exam Neck exam: Negative for: Lymphadenopathy - Respiratory Exam Respiratory Exam: Decreased Breath Sounds - Cardiovascular Exam Cardiovascular Exam: REGULAR RHYTHM - GI/Abdominal Exam GI & Abdominal Exam: Diminished Bowel Sounds, Soft. absent: Tenderness - Rectal Exam Rectal Exam: Deferred - Exam Exam: NORMAL INSPECTION - Extremities Exam Extremities exam: Negative for: pedal edema - Back Exam Back exam: absent: CVA tenderness (L), CVA tenderness (R), paraspinal tenderness - Neurological Exam Neurological exam: Alert, CN II-XII Intact, Oriented x3, Reflexes Normal - Psychiatric Exam Psychiatric exam: Normal Mood - Skin Skin Exam: Dry, Rash Results - Vital Signs Recent Vital Signs: Last Vital Signs Temp 98.5 F 11/25/17 12:00 Pulse 104 H 11/25/17 14:00 Resp 20 11/25/17 14:00 BP 118/65 11/25/17 14:00 Pulse Ox 95 11/25/17 07:00 - Labs Result Diagrams: 11/25/17 06:29 11/25/17 06:29 Labs: Laboratory Results - last 24 hr 11/24/17 11/24/17 11/25/17 01:24 21:21 06:29 WBC 4.6 L RBC 4.96 Hgb 13.1 Hct 38.5 MCV 77.7 L MCH 26.4 L MCHC 33.9 RDW 12.9 Plt Count 114 L MPV 9.3 Neut % (Auto) 67.9 Lymph % (Auto) 21.4 Nolan % (Auto) 6.6 Eos % (Auto) 3.9 Baso % (Auto) 0.2 Neut # (Auto) 3.1 Lymph # (Auto) 1.0 Nolan # (Auto) 0.3 Eos # (Auto) 0.2 Baso # (Auto) 0.0 Sodium Potassium Chloride Carbon Dioxide Anion Gap BUN Creatinine Est GFR ( Amer) Est GFR (Non-Af Amer) POC Glucose (mg/dL) 220 H Random Glucose Lactic Acid Calcium Magnesium Total Bilirubin AST ALT Alkaline Phosphatase Total Protein Albumin Globulin Albumin/Globulin Ratio Procalcitonin 0.07 L Thyroxine (T4) TSH 3rd Generation 11/25/17 11/25/17 11/25/17 06:29 06:29 07:12 WBC RBC Hgb Hct MCV MCH MCHC RDW Plt Count MPV Neut % (Auto) Lymph % (Auto) Nolan % (Auto) Eos % (Auto) Baso % (Auto) Neut # (Auto) Lymph # (Auto) Nolan # (Auto) Eos # (Auto) Baso # (Auto) Sodium 136 Potassium 3.6 Chloride 103 Carbon Dioxide 21 L Anion Gap 16 BUN 14 Creatinine 0.3 L Est GFR ( Amer) > 60 Est GFR (Non-Af Amer) > 60 POC Glucose (mg/dL) 207 H Random Glucose 213 H Lactic Acid Calcium 8.5 L Magnesium 1.6 Total Bilirubin 0.6 AST 108 H D ALT 112 H D Alkaline Phosphatase 210 H Total Protein 6.6 Albumin 3.7 Globulin 3.0 Albumin/Globulin Ratio 1.2 Procalcitonin Thyroxine (T4) 23.4 H TSH 3rd Generation < 0.02 L 11/25/17 11/25/17 11/25/17 11:27 13:43 16:06 WBC RBC Hgb Hct MCV MCH MCHC RDW Plt Count MPV Neut % (Auto) Lymph % (Auto) Nolan % (Auto) Eos % (Auto) Baso % (Auto) Neut # (Auto) Lymph # (Auto) Nolan # (Auto) Eos # (Auto) Baso # (Auto) Sodium Potassium Chloride Carbon Dioxide Anion Gap BUN Creatinine Est GFR ( Amer) Est GFR (Non-Af Amer) POC Glucose (mg/dL) 256 H 192 H Random Glucose Lactic Acid 1.9 Calcium Magnesium Total Bilirubin AST ALT Alkaline Phosphatase Total Protein Albumin Globulin Albumin/Globulin Ratio Procalcitonin Thyroxine (T4) TSH 3rd Generation Assessment & Plan (1) Fever Status: Acute (2) Hyperthyroidism Status: Acute (3) Thyroiditis Status: Acute (4) Diabetes mellitus Status: Acute - Assessment and Plan (Free Text) Assessment: 37 yo female with fever and allergic reaction to PCN source unclear Viral ? atypical etiology possible start IV Avelox obtain stool O/P C/S E Hystolitica etc Hepatitis and HIV serologies
[2017-11-25] MEDS: Moxifloxacin IV 400mg/250ml NS 400 MG/250 ML BAG IVPB SCH (18:24)
--- NOTE | 2017-11-25 18:50 | CP.PCM.PN ---
Subjective - Date & Time of Evaluation Date of Evaluation: 11/25/17 Time of Evaluation: 10:00 - Subjective Subjective: Seen this morning.Has fever spikes, c/o itchy rash,s/p loose BM and abdominal pain,no sob,has sore throat and dry cough,tachycardia improving developed rash this morning likely due to ampicillin(She had this morning) Patient also developed rash after zosyn in the ER. Possible penicillin allergy. Objective - Vital Signs/Intake and Output Vital Signs (last 24 hours): Temp Pulse Resp BP Pulse Ox 98.5 F 104 H 20 118/65 95 11/25/17 12:00 11/25/17 14:00 11/25/17 14:00 11/25/17 14:00 11/25/17 07:00 Intake and Output: 11/25/17 11/25/17 06:59 18:59 Intake Total 740 2565 Output Total 1450 Balance 740 1115 - Medications Medications: Current Medications Acetaminophen (Tylenol 325mg Tab) 975 mg PO ONCE PRN PRN Reason: Fever >100.4 F Last Admin: 11/25/17 07:17 Dose: 975 mg Dextrose (Dextrose 50% Inj) 0 ml IV STAT PRN; Protocol PRN Reason: Hypoglycemia Protocol Dextrose (Glutose 15) 0 gm PO ONCE PRN; Protocol PRN Reason: Hypoglycemia Protocol Diphenhydramine HCl (Benadryl) 25 mg PO Q6 PRN PRN Reason: Itching / Pruritus Last Admin: 11/25/17 16:36 Dose: 25 mg Famotidine (Pepcid) 40 mg PO DAILY [facility] Last Admin: 11/25/17 12:53 Dose: Not Given Glucagon (Glucagen Diagnostic Kit) 0 mg IM STAT PRN; Protocol PRN Reason: Hypoglycemia Protocol Heparin Sodium (Porcine) (Heparin) 5,000 units SC Q8 [facility] Last Admin: 11/25/17 14:21 Dose: 5,000 units Dextrose (Dextrose 5% In Water 1000 Ml) 1,000 mls @ 0 mls/hr IV .Q0M PRN; Protocol PRN Reason: Hypoglycemia Protocol Sodium Chloride (Sodium Chloride 0.9%) 1,000 mls @ 150 mls/hr IV .Q6H40M [facility] Last Admin: 11/25/17 12:30 Dose: 150 mls/hr Moxifloxacin HCl (Avelox Iv 400mg/250ml Ns) 400 mg in 250 mls @ 167 mls/hr IVPB Q24H [facility]; Protocol Last Admin: 11/25/17 18:24 Dose: 167 mls/hr Ibuprofen (Motrin Tab) 600 mg PO QID PRN PRN Reason: Fever >100.4 F Last Admin: 11/25/17 16:32 Dose: 600 mg Insulin Glargine (Lantus) 20 unit SC HS [facility] Last Admin: 11/24/17 22:10 Dose: 20 u Insulin Human Regular (Novolin R) 0 unit SC ACHS [facility]; Protocol Last Admin: 11/25/17 16:33 Dose: 2 u Methimazole (Tapazole) 20 mg PO Q6H [facility] Last Admin: 11/25/17 16:33 Dose: 20 mg Propranolol HCl (Inderal) 40 mg PO Q6H [facility] Last Admin: 11/25/17 17:45 Dose: Not Given Saccharomyces Boulardii (Florastor) 250 mg PO BID [facility] Last Admin: 11/25/17 17:48 Dose: 250 mg - Labs Labs: 11/25/17 06:29 11/25/17 06:29 PT 12.1 SECONDS (9.7-12.2) 11/24/17 01:24 INR 1.1 11/24/17 01:24 APTT 34 SECONDS (21-34) 11/24/17 01:24 - Constitutional Appears: Non-toxic - Head Exam Head Exam: NORMAL INSPECTION - Eye Exam Eye Exam: Normal appearance - ENT Exam ENT Exam: Mucous Membranes Moist. absent: Normal Oropharynx (redness) - Neck Exam Neck Exam: Full ROM - Respiratory Exam Respiratory Exam: Clear to Ausculation Bilateral, NORMAL BREATHING PATTERN - Cardiovascular Exam Cardiovascular Exam: Tachycardia, REGULAR RHYTHM - GI/Abdominal Exam GI & Abdominal Exam: Soft, Normal Bowel Sounds. absent: Distended, Tenderness - Extremities Exam Extremities Exam: Full ROM, Normal Inspection - Back Exam Back Exam: NORMAL INSPECTION - Neurological Exam Neurological Exam: Awake, Oriented x3 - Psychiatric Exam Psychiatric exam: Normal Mood - Skin Skin Exam: Dry, Rash (rash on her chest,back and arm) Assessment and Plan - Assessment and Plan (Free Text) Assessment: This is a 37years F with PMH DM, HTN, hyperthyroidism on Methimazole and propranolol who presents to ED complaining of fever, chills, and cough for 3 days. On admission patient had temp max 103F and tachycardia. Plan: 1.Thyroid storm Improving s/p Fever and tachycardia TSH <0.02,Free,high T4 continue Methimazole 20mg po q6h,Propranolol [address] Espinoza. She recommend to discharge home on Methimazole 20mg po bid and Propranolol LA 60mg po daily and ask her to follow medical clinic to check her TSH and T4 level 2.FEVER Patient spiking fever,Temp MaX this morning 102F As per DR Espinoza High fever is unlikely due to thyroid storm Her blood culture is neg,urine looks ok,chest x ray ok. Had loose stool and elevated LFT CT abd without contrast with normal GB we will repeat blood culture.do procalcitonin,stool for CD toxin Follow Dr Taylor's recommendation 3.Hyperthyroidism continue Methimazole and follow Dr Espinoza 4.DM-Poorly controlled Her HA1c is 9.8 patient was not on medication started on lantus.continue insulin coverage follow sugar,diabetic diet 5.DVT prophylaxis-heparin Sc GI prophylaxis is on pepcid
--- NOTE | 2017-11-25 19:00 | PN ---
DATE: 11/25/2017 ENDO FOLLOWUP NOTE LOCATION: In ICU room 6. SUBJECTIVE: This is a 37-year-old female presenting here with overt thyrotoxicosis with marked hyperthyroidism and also concomitant spiking temperatures with generalized body weakness and underlying constitutional symptoms and is now being followed closely for metabolic management. Her glycemic levels are fluctuating, but improved and the glucose values have ranged from 207 to 256 mg/dL. LABORATORY DATA: Her latest chemistry showed a BUN of 14, sodium 136, potassium 3.6, chloride 103, CO2 of 21, glucose 213, and creatinine 0.3. Repeat comprehensive hormonal profile with a total T4 or thyroxine level is 23.4 with a TSH of less than 0.02. The elevated liver transaminases are expected with the concomitant hyperthyroid condition and this is actually only a temporary phase and she is improved biochemically as her clinical condition improves accordingly. ASSESSMENT AND PLAN: We will continue the Tapazole given as 20 mg every 6 hours for inpatient thyroid management, but for eventual discharge, we would recommend Tapazole given as 20 mg b.i.d. after meals as ordered. We would recommend a close medical followup for lab testing and dose adjustments accordingly. We would actually even consider stopping her Lantus as her glycemic improved with the discontinuation of the steroid therapy as noted. We would also recommend propranolol given as LA long-acting at 60 mg once daily to enhance compliance because of dosing accordingly. We will follow. Azul Espinoza MD
[2017-11-25 19:05] LABS: HEPATITIS B SURFACE AG Negative (NEGATIVE)
[2017-11-25 19:11] LABS: HEPATITIS A IGM NEGATIVE (NEGATIVE); HEPATITIS B CORE AB NEGATIVE (NEGATIVE)
[2017-11-25 19:23] LABS: HEPATITIS C ANTIBODY NEGATIVE (NEGATIVE)
[2017-11-25] MEDS: (Lantus) Insulin Glargine, Recombinant SC SCH (21:55)
[2017-11-26] MEDS: Sodium Chloride 0.9% 1,000 ML IV SCH ×2 (03:47→08:25)
[2017-11-26 06:50] LABS: BASO % 0.3 % (0.0-2.0); EOS # 0.3 K/uL (0.0-0.7); EOS % 7.4 % (0.0-4.0); HEMOGLOBIN 12.8 g/dL (11.0-16.0); LYMPH # 0.7 K/uL (1.0-4.3); LYMPH % 16.7 % (20.0-40.0); MEAN CELL VOLUME 78.3 fL (81.0-99.0); MEAN CORPUSCULAR HEMOGLOBIN 26.4 pg (27.0-31.0); MEAN CORPUSCULAR HGB CONC 33.7 g/dL (33.0-37.0); MEAN PLATELET VOLUME 9.6 fL (7.2-11.7); MONO # 0.3 K/uL (0.0-0.8); MONO % 5.6 % (0.0-10.0); NEUT # 3.1 K/uL (1.8-7.0); NRBC % 0.1 % (0.0-2.0); RBC 4.84 Mil/uL (3.80-5.20); RED CELL DISTRIBUTION WIDTH 12.8 % (11.5-14.5); WHITE BLOOD COUNT 4.5 K/uL (4.8-10.8)
[2017-11-26 07:09] LABS: ALT/SGPT 92 U/L (9-52); AST/SGOT 50 U/L (14-36); BLOOD UREA NITROGEN 6 mg/dL (7-17); CALCIUM 8.4 mg/dl (8.6-10.4); GFR NON-AFRICAN AMERICAN > 60
[2017-11-26] MEDS: (Novolin R) Insulin Human Regular 100 units/ml vial SC SCH ×4 (07:54→22:09)
[2017-11-26] MEDS: Potassium Chloride 20 mEq ER Tab PO SCH (10:16)
[2017-11-26] MEDS: Saccharomyces Boulardi 250 mg Cap PO SCH ×2 (10:16→17:04)
--- NOTE | 2017-11-26 11:12 | RAD ---
Date of service: 11/26/2017 HISTORY: Fever COMPARISON: 11/24/2017. FINDINGS: LUNGS: The lungs are well inflated and clear. PLEURA: No significant pleural effusion identified, no pneumothorax apparent. CARDIOVASCULAR: Normal. OSSEOUS STRUCTURES: No significant abnormalities. VISUALIZED UPPER ABDOMEN: Normal. OTHER FINDINGS: None. IMPRESSION: No active pulmonary disease.
--- NOTE | 2017-11-26 16:38 | PN ---
DATE: 11/26/2017 ENDO FOLLOWUP NOTE LOCATION: In ICU room 6. SUBJECTIVE: This is a 37-year-old female with marked hyperthyroidism, both historically clinically and biochemically, presenting here with a near thyroid storm and thyroid crisis, and is now being followed closely for metabolic management. LABORATORY DATA: Her chemistries today showed a BUN of 6, sodium 136, potassium 3, chloride 105, CO2 of 19, glucose 118, and creatinine 0.3. Her thyroid studies showed a T4 of over 23 mcg/dL with a TSH of less than 0.02 as noted. ASSESSMENT AND PLAN: So at this time, we will continue the high dose and actually a supra-pharmacologic dose of Tapazole given as 20 mg p.o. every 6 hours for inpatient thyroid management. Upon discharge, we would recommend a lower dose of Tapazole given as 20 mg b.i.d. after meals as ordered. We will obtain serial chemistries and supplement accordingly as needed. We will follow. Azul Espinoza MD
[2017-11-26] MEDS: Moxifloxacin IV 400mg/250ml NS 400 MG/250 ML BAG IVPB SCH (17:04)
--- NOTE | 2017-11-26 17:13 | CP.PCM.PN ---
Subjective - Date & Time of Evaluation Date of Evaluation: 11/26/17 Time of Evaluation: 13:00 - Subjective Subjective: Seen and examined this afternoon. Has fever spikes Has nonproductive cough,loose stool rash improving Objective - Vital Signs/Intake and Output Vital Signs (last 24 hours): Temp Pulse Resp BP Pulse Ox 98.4 F 101 H 23 94/64 L 98 11/26/17 16:00 11/26/17 16:00 11/26/17 16:00 11/26/17 16:00 11/26/17 16:00 Intake and Output: 11/26/17 11/26/17 06:59 18:59 Intake Total 1989 1550 Output Total 0 Balance 1989 1550 - Medications Medications: Current Medications Acetaminophen (Tylenol 325mg Tab) 975 mg PO ONCE PRN PRN Reason: Fever >100.4 F Last Admin: 11/25/17 07:17 Dose: 975 mg Dextrose (Dextrose 50% Inj) 0 ml IV STAT PRN; Protocol PRN Reason: Hypoglycemia Protocol Dextrose (Glutose 15) 0 gm PO ONCE PRN; Protocol PRN Reason: Hypoglycemia Protocol Diphenhydramine HCl (Benadryl) 25 mg PO Q6 PRN PRN Reason: Itching / Pruritus Last Admin: 11/25/17 16:36 Dose: 25 mg Famotidine (Pepcid) 40 mg PO DAILY [facility] Last Admin: 11/26/17 10:19 Dose: 40 mg Glucagon (Glucagen Diagnostic Kit) 0 mg IM STAT PRN; Protocol PRN Reason: Hypoglycemia Protocol Heparin Sodium (Porcine) (Heparin) 5,000 units SC Q8 [facility] Last Admin: 11/26/17 14:21 Dose: 5,000 units Dextrose (Dextrose 5% In Water 1000 Ml) 1,000 mls @ 0 mls/hr IV .Q0M PRN; Protocol PRN Reason: Hypoglycemia Protocol Moxifloxacin HCl (Avelox Iv 400mg/250ml Ns) 400 mg in 250 mls @ 167 mls/hr IVPB Q24H [facility]; Protocol Last Admin: 11/26/17 17:04 Dose: 167 mls/hr Potassium Chloride 10 meq/ (Sodium Chloride) 1,005 mls @ 100 mls/hr IV .Q10H3M [facility] Last Admin: 11/26/17 15:19 Dose: 100 mls/hr Ibuprofen (Motrin Tab) 600 mg PO QID PRN PRN Reason: Fever >100.4 F Last Admin: 11/26/17 14:22 Dose: 600 mg Insulin Glargine (Lantus) 20 unit SC HS [facility] Last Admin: 11/25/17 21:55 Dose: 20 u Insulin Human Regular (Novolin R) 0 unit SC ACHS [facility]; Protocol Last Admin: 11/26/17 17:03 Dose: Not Given Methimazole (Tapazole) 20 mg PO Q6H [facility] Last Admin: 11/26/17 15:19 Dose: 20 mg Potassium Chloride (K-Dur 20 Meq Er Tab) 40 meq PO DAILY [facility] Last Admin: 11/26/17 10:16 Dose: 40 meq Propranolol HCl (Inderal La) 60 mg PO DAILY [facility] Saccharomyces Boulardii (Florastor) 250 mg PO BID [facility] Last Admin: 11/26/17 17:04 Dose: 250 mg - Labs Labs: 11/26/17 06:30 11/26/17 06:30 PT 12.1 SECONDS (9.7-12.2) 11/24/17 01:24 INR 1.1 11/24/17 01:24 APTT 34 SECONDS (21-34) 11/24/17 01:24 - Constitutional Appears: Non-toxic, No Acute Distress - Head Exam Head Exam: NORMAL INSPECTION - ENT Exam ENT Exam: Mucous Membranes Moist - Neck Exam Neck Exam: Full ROM - Respiratory Exam Respiratory Exam: Clear to Ausculation Bilateral, NORMAL BREATHING PATTERN - Cardiovascular Exam Cardiovascular Exam: Tachycardia, Murmur - GI/Abdominal Exam GI & Abdominal Exam: Soft, Tenderness (right hypochodrial tenderness) - Extremities Exam Extremities Exam: Full ROM, Normal Inspection - Back Exam Back Exam: NORMAL INSPECTION - Neurological Exam Neurological Exam: Awake, Oriented x3 - Psychiatric Exam Psychiatric exam: Normal Mood - Skin Skin Exam: Dry Assessment and Plan - Assessment and Plan (Free Text) Assessment: This is a 37years F with PMH DM, HTN, hyperthyroidism on Methimazole and propranolol who presents to ED complaining of fever, chills, and cough for 3 days. On admission patient had temp max 103F and tachycardia. She was admitted for thyroid storm . Now she is having persistent fever spikes Plan: 1.FEVER Patient spiking fever,no leukocytosis,platelets are going down Her blood culture is neg,urine looks ok,chest x ray ok. Had loose stool and elevated LFT and right hypochondria tenderness CT abd without contrast with normal GB we will do HIDA scan,GI evaluation we will repeat blood culture negative for growth x24hrs.stool for CD toxin negative,has low procalcitonin will do an echocardiography continue Avelox follow malaria,MMR/VZV,Entamoeba,leginella,blood paracites and stool study 2.s/p Thyroid storm Improving s/p Fever and tachycardia TSH <0.02,Free,high T4 continue Methimazole 20mg po q6h,Propranol LA 60mg daily Discussed with DR Espinoza. She recommend to discharge home on Methimazole 20mg po bid and Propranolol LA 60mg po daily and ask her to follow medical clinic to check her TSH and T4 level 3.Hyperthyroidism continue Methimazole and follow Dr Espinoza 4.DM-Poorly controlled Her HA1c is 9.8 patient was not on medication started on lantus.continue insulin coverage follow sugar,diabetic diet 5.DVT prophylaxis-heparin Sc,monitor platelets GI prophylaxis is on pepcid
--- NOTE | 2017-11-26 17:28 | CP.PCM.PN ---
Subjective - Date & Time of Evaluation Date of Evaluation: 11/26/17 Time of Evaluation: 07:00 - Subjective Subjective: some fever still with cough less rash mild abd pain Objective - Vital Signs/Intake and Output Vital Signs (last 24 hours): Temp Pulse Resp BP Pulse Ox 98.4 F 101 H 23 94/64 L 98 11/26/17 16:00 11/26/17 16:00 11/26/17 16:00 11/26/17 16:00 11/26/17 16:00 Intake and Output: 11/26/17 11/26/17 06:59 18:59 Intake Total 1989 1550 Output Total 0 Balance 1989 1550 - Medications Medications: Current Medications Acetaminophen (Tylenol 325mg Tab) 975 mg PO ONCE PRN PRN Reason: Fever >100.4 F Last Admin: 11/25/17 07:17 Dose: 975 mg Dextrose (Dextrose 50% Inj) 0 ml IV STAT PRN; Protocol PRN Reason: Hypoglycemia Protocol Dextrose (Glutose 15) 0 gm PO ONCE PRN; Protocol PRN Reason: Hypoglycemia Protocol Diphenhydramine HCl (Benadryl) 25 mg PO Q6 PRN PRN Reason: Itching / Pruritus Last Admin: 11/25/17 16:36 Dose: 25 mg Famotidine (Pepcid) 40 mg PO DAILY [facility] Last Admin: 11/26/17 10:19 Dose: 40 mg Glucagon (Glucagen Diagnostic Kit) 0 mg IM STAT PRN; Protocol PRN Reason: Hypoglycemia Protocol Heparin Sodium (Porcine) (Heparin) 5,000 units SC Q8 [facility] Last Admin: 11/26/17 14:21 Dose: 5,000 units Dextrose (Dextrose 5% In Water 1000 Ml) 1,000 mls @ 0 mls/hr IV .Q0M PRN; Protocol PRN Reason: Hypoglycemia Protocol Moxifloxacin HCl (Avelox Iv 400mg/250ml Ns) 400 mg in 250 mls @ 167 mls/hr IVPB Q24H [facility]; Protocol Last Admin: 11/26/17 17:04 Dose: 167 mls/hr Potassium Chloride 10 meq/ (Sodium Chloride) 1,005 mls @ 100 mls/hr IV .Q10H3M [facility] Last Admin: 11/26/17 15:19 Dose: 100 mls/hr Ibuprofen (Motrin Tab) 600 mg PO QID PRN PRN Reason: Fever >100.4 F Last Admin: 11/26/17 14:22 Dose: 600 mg Insulin Glargine (Lantus) 20 unit SC HS [facility] Last Admin: 11/25/17 21:55 Dose: 20 u Insulin Human Regular (Novolin R) 0 unit SC ACHS [facility]; Protocol Last Admin: 11/26/17 17:03 Dose: Not Given Methimazole (Tapazole) 20 mg PO Q6H [facility] Last Admin: 11/26/17 15:19 Dose: 20 mg Potassium Chloride (K-Dur 20 Meq Er Tab) 40 meq PO DAILY [facility] Last Admin: 11/26/17 10:16 Dose: 40 meq Propranolol HCl (Inderal La) 60 mg PO DAILY [facility] Saccharomyces Boulardii (Florastor) 250 mg PO BID [facility] Last Admin: 11/26/17 17:04 Dose: 250 mg - Labs Labs: 11/26/17 06:30 11/26/17 06:30 PT 12.1 SECONDS (9.7-12.2) 11/24/17 01:24 INR 1.1 11/24/17 01:24 APTT 34 SECONDS (21-34) 11/24/17 01:24 - Constitutional Appears: Non-toxic, Chronically Ill - Head Exam Head Exam: NORMOCEPHALIC - Eye Exam Eye Exam: PERRL - ENT Exam ENT Exam: Mucous Membranes Dry - Neck Exam Neck Exam: absent: Lymphadenopathy - Respiratory Exam Respiratory Exam: Decreased Breath Sounds - Cardiovascular Exam Cardiovascular Exam: REGULAR RHYTHM - GI/Abdominal Exam GI & Abdominal Exam: Distended, Soft, Tenderness Additional comments: mild ruq tend no rebound no guarding - Rectal Exam Rectal Exam: Deferred - Exam Exam: NORMAL INSPECTION - Extremities Exam Extremities Exam: absent: Pedal Edema - Back Exam Back Exam: absent: CVA tenderness (L), CVA tenderness (R) - Neurological Exam Neurological Exam: Alert, Awake, CN II-XII Intact, Oriented x3 - Psychiatric Exam Psychiatric exam: Normal Mood - Skin Skin Exam: Dry Additional comments: rash resolving Assessment and Plan (1) Fever Status: Acute (2) Hyperthyroidism Status: Acute (3) Thyroiditis Status: Acute (4) Diabetes mellitus Status: Acute - Assessment and Plan (Free Text) Assessment: all cultures and serologies neg thus far will obtain MMR titer likely viral ( flu like ) illness will send malaria smear
[2017-11-26 21:15] LABS: THYROGLOBULIN 10.5 ng/mL (2.8-40.9)
[2017-11-26] MEDS: (Lantus) Insulin Glargine, Recombinant SC SCH (22:08)
[2017-11-26 23:28] LABS: INTRACELLULAR PARASITE NEGATIVE (NEGATIVE)
[2017-11-27 06:38] LABS: BASO % 0.5 % (0.0-2.0); EOS # 0.3 K/uL (0.0-0.7); EOS % 7.6 % (0.0-4.0); HEMOGLOBIN 12.3 g/dL (11.0-16.0); LYMPH # 1.3 K/uL (1.0-4.3); LYMPH % 31.5 % (20.0-40.0); MEAN CELL VOLUME 77.7 fL (81.0-99.0); MEAN CORPUSCULAR HEMOGLOBIN 25.9 pg (27.0-31.0); MEAN CORPUSCULAR HGB CONC 33.3 g/dL (33.0-37.0); MEAN PLATELET VOLUME 10.3 fL (7.2-11.7); MONO # 0.2 K/uL (0.0-0.8); MONO % 5.9 % (0.0-10.0); NEUT # 2.2 K/uL (1.8-7.0); NEUT % 54.5 % (50.0-75.0); NRBC % 0.1 % (0.0-2.0); RBC 4.77 Mil/uL (3.80-5.20)
[2017-11-27 06:56] LABS: ALT/SGPT 102 U/L (9-52); AST/SGOT 72 U/L (14-36); BLOOD UREA NITROGEN 5 mg/dL (7-17); CALCIUM 8.4 mg/dl (8.6-10.4); GFR NON-AFRICAN AMERICAN > 60
[2017-11-27] MEDS: (Novolin R) Insulin Human Regular 100 units/ml vial SC SCH ×4 (08:02→21:28)
[2017-11-27] MEDS: Saccharomyces Boulardi 250 mg Cap PO SCH ×2 (09:48→17:21)
[2017-11-27] MEDS: Potassium Chloride 20 mEq ER Tab PO SCH (09:48)
[2017-11-27] MEDS: Propranolol 60 mg ER Cap PO SCH (09:48)
--- NOTE | 2017-11-27 12:45 | CP.PCM.CON ---
History of Present Illness - History of Present Illness History of Present Illness: GI Service Consult CC: elevated liver enzymes HPI: 37 year old Diabetic woman admitted with fevers, palpitations, diarrhea, found to be thyrotoxic. Liver enzymes elevated. Denies abdominal pain. CT abdomen normal. HIDA scan pending. Denies arthralgias, myalgias. Monospot negative. In ICU. Discussed with medical attending and resident. Past Patient History - Infectious Disease Hx of Infectious Diseases: None - Past Medical History & Family History Past Medical History?: Yes - Past Social History Smoking Status: Never Smoked - CARDIAC Hx Hypertension: Yes - PULMONARY Hx Respiratory Disorders: No - NEUROLOGICAL Hx Neurological Disorder: No - HEENT Hx HEENT Problems: No - RENAL Hx Chronic Kidney Disease: No - ENDOCRINE/METABOLIC Hx Hyperthyroidism: Yes Hx Hypothyroidism: Yes (NO MEDICATIONS AT THIS TIME) - HEMATOLOGICAL/ONCOLOGICAL Hx Blood Disorders: No - INTEGUMENTARY Hx Dermatological Problems: No - MUSCULOSKELETAL/RHEUMATOLOGICAL Hx Musculoskeletal Disorders: No Hx Falls: No - GASTROINTESTINAL Hx Gastrointestinal Disorders: No - GENITOURINARY/GYNECOLOGICAL Hx Genitourinary Disorders: No - PSYCHIATRIC Hx Substance Use: No - SURGICAL HISTORY Hx Surgeries: Yes Hx Section: Yes Hx Hysterectomy: Yes Other/Comment: BTL - ANESTHESIA Hx Anesthesia: Yes Hx Anesthesia Reactions: No Meds Allergies/Adverse Reactions: Allergies Allergy/AdvReac Type Severity Reaction Status Date / Time ampicillin Allergy RASH Verified 11/25/17 09:22 vancomycin Allergy RASH Verified 11/24/17 02:27 - Medications Medications: Current Medications Acetaminophen (Tylenol 325mg Tab) 975 mg PO ONCE PRN PRN Reason: Fever >100.4 F Last Admin: 11/25/17 07:17 Dose: 975 mg Dextrose (Dextrose 50% Inj) 0 ml IV STAT PRN; Protocol PRN Reason: Hypoglycemia Protocol Dextrose (Glutose 15) 0 gm PO ONCE PRN; Protocol PRN Reason: Hypoglycemia Protocol Diphenhydramine HCl (Benadryl) 25 mg PO Q6 PRN PRN Reason: Itching / Pruritus Last Admin: 11/25/17 16:36 Dose: 25 mg Famotidine (Pepcid) 40 mg PO DAILY [facility] Last Admin: 11/27/17 09:49 Dose: 40 mg Glucagon (Glucagen Diagnostic Kit) 0 mg IM STAT PRN; Protocol PRN Reason: Hypoglycemia Protocol Heparin Sodium (Porcine) (Heparin) 5,000 units SC Q8 [facility] Last Admin: 11/27/17 06:30 Dose: 5,000 units Moxifloxacin HCl (Avelox Iv 400mg/250ml Ns) 400 mg in 250 mls @ 167 mls/hr IVPB Q24H [facility]; Protocol Last Admin: 11/26/17 17:04 Dose: 167 mls/hr Potassium Chloride 10 meq/ (Sodium Chloride) 1,005 mls @ 100 mls/hr IV .Q10H3M [facility] Last Admin: 11/27/17 12:13 Dose: Not Given Ibuprofen (Motrin Tab) 600 mg PO QID PRN PRN Reason: Fever >100.4 F Last Admin: 11/27/17 08:06 Dose: 600 mg Insulin Glargine (Lantus) 20 unit SC HS [facility] Last Admin: 11/26/17 22:08 Dose: 20 u Insulin Human Regular (Novolin R) 0 unit SC ACHS [facility]; Protocol Last Admin: 11/27/17 12:13 Dose: 2 u Methimazole (Tapazole) 20 mg PO Q6H [facility] Last Admin: 11/27/17 09:49 Dose: 20 mg Potassium Chloride (K-Dur 20 Meq Er Tab) 40 meq PO DAILY [facility] Last Admin: 11/27/17 09:48 Dose: 40 meq Propranolol HCl (Inderal La) 60 mg PO DAILY [facility] Last Admin: 11/27/17 09:48 Dose: 60 mg Saccharomyces Boulardii (Florastor) 250 mg PO BID [facility] Last Admin: 11/27/17 09:48 Dose: 250 mg Physical Exam - Constitutional Appears: Well, No Acute Distress - Head Exam Head Exam: ATRAUMATIC, NORMOCEPHALIC - Eye Exam Eye Exam: EOMI, Normal appearance. absent: Scleral icterus - ENT Exam ENT Exam: Normal Exam - Neck Exam Neck exam: Positive for: Normal Inspection, Thyromegaly - Respiratory Exam Respiratory Exam: NORMAL BREATHING PATTERN - Cardiovascular Exam Cardiovascular Exam: REGULAR RHYTHM - GI/Abdominal Exam GI & Abdominal Exam: Soft. absent: Mass, Organomegaly, Rebound, Tenderness Results - Vital Signs Recent Vital Signs: Last Vital Signs Temp 100.9 F H 11/27/17 08:00 Pulse 111 H 11/27/17 08:00 Resp 26 H 11/27/17 08:00 BP 106/53 L 11/27/17 08:00 Pulse Ox 99 11/27/17 08:00 - Labs Result Diagrams: 11/27/17 06:31 11/27/17 06:32 Labs: Laboratory Results - last 24 hr 11/25/17 11/25/17 11/25/17 06:29 06:29 16:43 WBC RBC Hgb Hct MCV MCH MCHC RDW Plt Count MPV Neut % (Auto) Lymph % (Auto) [place] % (Auto) Eos % (Auto) Baso % (Auto) Neut # (Auto) Lymph # (Auto) [place] # (Auto) Eos # (Auto) Baso # (Auto) Sodium Potassium Chloride Carbon Dioxide Anion Gap BUN Creatinine Est GFR ( Amer) Est GFR (Non-Af Amer) POC Glucose (mg/dL) Random Glucose Calcium Total Bilirubin AST ALT Alkaline Phosphatase Total Protein Albumin Globulin Albumin/Globulin Ratio Procalcitonin Thyroglobulin, Quant 10.5 Thyroperoxidase Ab >900 H Thyroglobulin Antibody >1000 H C. difficile Ag & Toxin Negative Infectious [place] Assay Influenza Typ A,B (EIA) Ur L.pneumophila Ag Blood Parasites Smear 11/26/17 11/26/17 11/26/17 06:30 08:41 16:55 WBC RBC Hgb Hct MCV MCH MCHC RDW Plt Count MPV Neut % (Auto) Lymph % (Auto) [place] % (Auto) Eos % (Auto) Baso % (Auto) Neut # (Auto) Lymph # (Auto) [place] # (Auto) Eos # (Auto) Baso # (Auto) Sodium Potassium Chloride Carbon Dioxide Anion Gap BUN Creatinine Est GFR ( Amer) Est GFR (Non-Af Amer) POC Glucose (mg/dL) 133 H Random Glucose Calcium Total Bilirubin AST ALT Alkaline Phosphatase Total Protein Albumin Globulin Albumin/Globulin Ratio Procalcitonin 0.28 Thyroglobulin, Quant Thyroperoxidase Ab Thyroglobulin Antibody C. difficile Ag & Toxin Infectious [place] Assay Influenza Typ A,B (EIA) Ur L.pneumophila Ag Negative Blood Parasites Smear 11/26/17 11/26/17 11/26/17 21:12 22:39 22:40 WBC RBC Hgb Hct MCV MCH MCHC RDW Plt Count MPV Neut % (Auto) Lymph % (Auto) [place] % (Auto) Eos % (Auto) Baso % (Auto) Neut # (Auto) Lymph # (Auto) [place] # (Auto) Eos # (Auto) Baso # (Auto) Sodium Potassium Chloride Carbon Dioxide Anion Gap BUN Creatinine Est GFR ( Amer) Est GFR (Non-Af Amer) POC Glucose (mg/dL) 242 H Random Glucose Calcium Total Bilirubin AST ALT Alkaline Phosphatase Total Protein Albumin Globulin Albumin/Globulin Ratio Procalcitonin Thyroglobulin, Quant Thyroperoxidase Ab Thyroglobulin Antibody C. difficile Ag & Toxin Infectious [place] Assay Influenza Typ A,B (EIA) Negative for flu a/b Ur L.pneumophila Ag Blood Parasites Smear Negative 11/27/17 11/27/17 11/27/17 06:31 06:32 06:32 WBC 4.0 L RBC 4.77 Hgb 12.3 Hct 37.1 MCV 77.7 L MCH 25.9 L MCHC 33.3 RDW 13.0 Plt Count 93 L MPV 10.3 Neut % (Auto) 54.5 Lymph % (Auto) 31.5 [place] % (Auto) 5.9 Eos % (Auto) 7.6 H Baso % (Auto) 0.5 Neut # (Auto) 2.2 Lymph # (Auto) 1.3 [place] # (Auto) 0.2 Eos # (Auto) 0.3 Baso # (Auto) 0.0 Sodium 138 Potassium 3.3 L Chloride 108 H Carbon Dioxide 18 L Anion Gap 15 BUN 5 L Creatinine 0.3 L Est GFR ( Amer) > 60 Est GFR (Non-Af Amer) > 60 POC Glucose (mg/dL) Random Glucose 146 H Calcium 8.4 L Total Bilirubin 3.2 H AST 72 H D ALT 102 H Alkaline Phosphatase 230 H Total Protein 6.0 L Albumin 3.0 L Globulin 3.0 Albumin/Globulin Ratio 1.0 Procalcitonin Thyroglobulin, Quant Thyroperoxidase Ab Thyroglobulin Antibody C. difficile Ag & Toxin Infectious [place] Assay Negative Influenza Typ A,B (EIA) Ur L.pneumophila Ag Blood Parasites Smear 11/27/17 11/27/17 07:15 11:26 WBC RBC Hgb Hct MCV MCH MCHC RDW Plt Count MPV Neut % (Auto) Lymph % (Auto) [place] % (Auto) Eos % (Auto) Baso % (Auto) Neut # (Auto) Lymph # (Auto) [place] # (Auto) Eos # (Auto) Baso # (Auto) Sodium Potassium Chloride Carbon Dioxide Anion Gap BUN Creatinine Est GFR ( Amer) Est GFR (Non-Af Amer) POC Glucose (mg/dL) 127 H 191 H Random Glucose Calcium Total Bilirubin AST ALT Alkaline Phosphatase Total Protein Albumin Globulin Albumin/Globulin Ratio Procalcitonin Thyroglobulin, Quant Thyroperoxidase Ab Thyroglobulin Antibody C. difficile Ag & Toxin Infectious [place] Assay Influenza Typ A,B (EIA) Ur L.pneumophila Ag Blood Parasites Smear Assessment & Plan (1) Thyroiditis Assessment and Plan: thyroid crisis. management per Traffic Law Attorney. Pt in ICU Status: Acute (2) Transaminasemia Assessment and Plan: Likely from Hyperthyroidism with acute crisis. Need to exclude cholecystitis, though RUQ exam is nontender and pt denies abdominal pain. Also, Grave's Disease can have coexistent liver disease such as PBC or autoimmune hepatitis. Rec: sono RUQ, MARCELA, AMA. Monitor LFTs. D/W medical attending/resident Status: Acute
--- NOTE | 2017-11-27 14:05 | NM ---
Date of service: 11/26/2017 PROCEDURE: Nuclear Medicine Hepatobiliary Scan HISTORY: fever,elevated LFTR/o GB pathology,cholecystitis COMPARISON: 11/25/2017 CT abdomen and pelvis TECHNIQUE: 6.5 mCi of technetium 99m Mebrofenin was administered intravenously. Planar images of the abdomen were obtained at 5 min intervals to 60 mins. Delayed images were also obtained. FINDINGS: LIVER: Timely and homogenous uptake. COMMON BILE DUCT: identified at 20 mins. GALLBLADDER: Not identified at 04:00 hours.. SMALL BOWEL: Identified at 3 hr mins. IMPRESSION: Abnormal hepatic biliary scan. Nonvisualization of gallbladder consistent with cystic duct obstruction/acute cholecystitis. Concordant results (preliminary interpretation) provided by ABE MAJOR. Procedure Completed: 19:34 Preliminary Report: Dictated and Authenticated: 21:11. Final Interpretation: 13:58. November 27, 2017
--- NOTE | 2017-11-27 15:34 | US ---
Date of service: 11/27/2017 HISTORY: LFT elevation COMPARISON: CT abdomen and pelvis from 11/25/2017. TECHNIQUE: Grayscale imaging was performed. FINDINGS: LIVER: Measures 15.0 cm. There is diffuse increased echogenicity of the liver parenchyma. No mass. No intrahepatic bile duct dilatation. GALLBLADDER: There are no gallstones, wall thickening or pericholecystic fluid. The sonographic Luu's sign is negative. COMMON BILE DUCT: Measures 4.0 mm. No stones. No dilatation. PANCREAS: Unremarkable as visualized. No mass. No ductal dilatation. RIGHT KIDNEY: Measures 11.1cm. Normal echogenicity. No calculus, mass, or hydronephrosis. LEFT KIDNEY: Measures 10.8cm. Normal echogenicity. No calculus, mass, or hydronephrosis. SPLEEN: Borderline splenomegaly. No mass. AORTA: No aneurysmal dilatation. IVC: Unremarkable. OTHER FINDINGS: None. IMPRESSION: Diffuse increased echogenicity in the liver may reflect hepatic steatosis however parenchymal infectious/ inflammatory etiologies cannot be entirely excluded. Clinical and laboratory correlation is advised. Borderline splenomegaly. No cholelithiasis or biliary dilatation.
--- NOTE | 2017-11-27 16:05 | CP.PCM.PN ---
Subjective - Date & Time of Evaluation Date of Evaluation: 11/27/17 Time of Evaluation: 08:00 - Subjective Subjective: improving slowly t max less all cultures so far neg endocrine following for thyrotoxicosis Objective - Vital Signs/Intake and Output Vital Signs (last 24 hours): Temp Pulse Resp BP Pulse Ox 97.7 F 83 19 96/27 L 98 11/27/17 12:00 11/27/17 12:00 11/27/17 12:00 11/27/17 12:00 11/27/17 12:00 Intake and Output: 11/27/17 11/27/17 06:59 18:59 Intake Total 120 1160 Output Total 350 Balance -230 1160 - Medications Medications: Current Medications Acetaminophen (Tylenol 325mg Tab) 975 mg PO ONCE PRN PRN Reason: Fever >100.4 F Last Admin: 11/25/17 07:17 Dose: 975 mg Dextrose (Dextrose 50% Inj) 0 ml IV STAT PRN; Protocol PRN Reason: Hypoglycemia Protocol Dextrose (Glutose 15) 0 gm PO ONCE PRN; Protocol PRN Reason: Hypoglycemia Protocol Diphenhydramine HCl (Benadryl) 25 mg PO Q6 PRN PRN Reason: Itching / Pruritus Last Admin: 11/25/17 16:36 Dose: 25 mg Famotidine (Pepcid) 40 mg PO DAILY [facility] Last Admin: 11/27/17 09:49 Dose: 40 mg Glucagon (Glucagen Diagnostic Kit) 0 mg IM STAT PRN; Protocol PRN Reason: Hypoglycemia Protocol Heparin Sodium (Porcine) (Heparin) 5,000 units SC Q8 [facility] Last Admin: 11/27/17 14:54 Dose: 5,000 units Moxifloxacin HCl (Avelox Iv 400mg/250ml Ns) 400 mg in 250 mls @ 167 mls/hr IVPB Q24H [facility]; Protocol Last Admin: 11/26/17 17:04 Dose: 167 mls/hr Potassium Chloride 10 meq/ (Sodium Chloride) 1,005 mls @ 100 mls/hr IV .Q10H3M [facility] Last Admin: 11/27/17 12:13 Dose: Not Given Ibuprofen (Motrin Tab) 600 mg PO QID PRN PRN Reason: Fever >100.4 F Last Admin: 11/27/17 08:06 Dose: 600 mg Insulin Glargine (Lantus) 20 unit SC HS [facility] Last Admin: 11/26/17 22:08 Dose: 20 u Insulin Human Regular (Novolin R) 0 unit SC ACHS [facility]; Protocol Last Admin: 11/27/17 12:13 Dose: 2 u Methimazole (Tapazole) 20 mg PO Q6H [facility] Last Admin: 11/27/17 09:49 Dose: 20 mg Potassium Chloride (K-Dur 20 Meq Er Tab) 40 meq PO DAILY [facility] Last Admin: 11/27/17 09:48 Dose: 40 meq Propranolol HCl (Inderal La) 60 mg PO DAILY [facility] Last Admin: 11/27/17 09:48 Dose: 60 mg Saccharomyces Boulardii (Florastor) 250 mg PO BID [facility] Last Admin: 11/27/17 09:48 Dose: 250 mg - Labs Labs: 11/27/17 06:31 11/27/17 06:32 PT 12.1 SECONDS (9.7-12.2) 11/24/17 01:24 INR 1.1 11/24/17 01:24 APTT 34 SECONDS (21-34) 11/24/17 01:24 - Constitutional Appears: Non-toxic, Chronically Ill - Head Exam Head Exam: NORMOCEPHALIC - Eye Exam Eye Exam: PERRL - ENT Exam ENT Exam: Mucous Membranes Dry - Neck Exam Neck Exam: absent: Lymphadenopathy - Respiratory Exam Respiratory Exam: Decreased Breath Sounds - Cardiovascular Exam Cardiovascular Exam: REGULAR RHYTHM - GI/Abdominal Exam GI & Abdominal Exam: Soft. absent: Tenderness - Rectal Exam Rectal Exam: Deferred - Exam Exam: NORMAL INSPECTION - Back Exam Back Exam: absent: CVA tenderness (L), CVA tenderness (R) - Neurological Exam Neurological Exam: Alert, Awake, Oriented x3 - Psychiatric Exam Psychiatric exam: Normal Mood - Skin Skin Exam: Dry Assessment and Plan (1) Fever Status: Acute (2) Hyperthyroidism Status: Acute (3) Thyroiditis Status: Acute (4) Diabetes mellitus Status: Acute - Assessment and Plan (Free Text) Assessment: consider d/c all antibiotics after 5 days if cultures negative likely viral/ autoimmune fever ?
[2017-11-27] MEDS: Moxifloxacin IV 400mg/250ml NS 400 MG/250 ML BAG IVPB SCH (17:19)
--- NOTE | 2017-11-27 18:16 | CP.PCM.CON ---
History of Present Illness - History of Present Illness History of Present Illness: General Surgery progress note for Dr. Salmeron Pt is a 37F with PMH of DM and Hypothyroidism who presented to the ED with fevers and was admitted for thyroid storm. patient was treated for hyperthyroid, started on antibiotics but had persistent fevers. Pt also complained of RUQ pain, no nausea or vomiting, is tolerating her diet. US was performed which showed no signs of acute cholecystitis or stones, then had a HIDA scan that did not visualize the gallbladder, concerning for acute cholecystitis, so surgical consult was called. Patient states that she is feeling better today, with minimal pain, no nausea or vomiting. She is having regular bowel movements, no melena or hematochezia, normal color and consistency, though she reports at home she alternates between diarrhea and constipation. Pt states that she does experience very brief moments of stabbing RUQ pain every once in a while at home. Denies any dysuria, hematuria, new back pain or shoulder pain, or any other relevant symptoms. PMH: DM, HTN, hyperthyroidism PSH: c-sxn x1, tubal ligation ALL: ampicillin, vancomycin Social: denies tobacco, ETOH use, remote history of marijuana use 2x's 15 years ago Family history: not pertinent Review of Systems - Review of Systems All systems: reviewed and no additional remarkable complaints except (as per HPI) Past Patient History - Infectious Disease Hx of Infectious Diseases: None - Past Medical History & Family History Past Medical History?: Yes Past Family History: Reviewed and not pertinent - Past Social History Smoking Status: Never Smoked Alcohol: None Drugs: Denies - CARDIAC Hx Hypertension: Yes - PULMONARY Hx Respiratory Disorders: No - NEUROLOGICAL Hx Neurological Disorder: No - HEENT Hx HEENT Problems: No - RENAL Hx Chronic Kidney Disease: No - ENDOCRINE/METABOLIC Hx Hyperthyroidism: Yes Hx Hypothyroidism: Yes (NO MEDICATIONS AT THIS TIME) - HEMATOLOGICAL/ONCOLOGICAL Hx Blood Disorders: No - INTEGUMENTARY Hx Dermatological Problems: No - MUSCULOSKELETAL/RHEUMATOLOGICAL Hx Musculoskeletal Disorders: No Hx Falls: No - GASTROINTESTINAL Hx Gastrointestinal Disorders: No - GENITOURINARY/GYNECOLOGICAL Hx Genitourinary Disorders: No - PSYCHIATRIC Hx Substance Use: No - SURGICAL HISTORY Hx Surgeries: Yes Hx Section: Yes Hx Hysterectomy: Yes Other/Comment: BTL - ANESTHESIA Hx Anesthesia: Yes Hx Anesthesia Reactions: No Meds Allergies/Adverse Reactions: Allergies Allergy/AdvReac Type Severity Reaction Status Date / Time ampicillin Allergy RASH Verified 11/25/17 09:22 vancomycin Allergy RASH Verified 11/24/17 02:27 - Medications Medications: Current Medications Acetaminophen (Tylenol 325mg Tab) 975 mg PO ONCE PRN PRN Reason: Fever >100.4 F Last Admin: 11/25/17 07:17 Dose: 975 mg Dextrose (Dextrose 50% Inj) 0 ml IV STAT PRN; Protocol PRN Reason: Hypoglycemia Protocol Dextrose (Glutose 15) 0 gm PO ONCE PRN; Protocol PRN Reason: Hypoglycemia Protocol Diphenhydramine HCl (Benadryl) 25 mg PO Q6 PRN PRN Reason: Itching / Pruritus Last Admin: 11/25/17 16:36 Dose: 25 mg Famotidine (Pepcid) 40 mg PO DAILY [facility] Last Admin: 11/27/17 09:49 Dose: 40 mg Glucagon (Glucagen Diagnostic Kit) 0 mg IM STAT PRN; Protocol PRN Reason: Hypoglycemia Protocol Heparin Sodium (Porcine) (Heparin) 5,000 units SC Q8 [facility] Last Admin: 11/27/17 14:54 Dose: 5,000 units Moxifloxacin HCl (Avelox Iv 400mg/250ml Ns) 400 mg in 250 mls @ 167 mls/hr IVPB Q24H [facility]; Protocol Last Admin: 11/27/17 17:19 Dose: 167 mls/hr Potassium Chloride 10 meq/ (Sodium Chloride) 1,005 mls @ 100 mls/hr IV .Q10H3M [facility] Last Admin: 11/27/17 12:13 Dose: Not Given Ibuprofen (Motrin Tab) 600 mg PO QID PRN PRN Reason: Fever >100.4 F Last Admin: 11/27/17 08:06 Dose: 600 mg Insulin Glargine (Lantus) 20 unit SC HS [facility] Last Admin: 11/26/17 22:08 Dose: 20 u Insulin Human Regular (Novolin R) 0 unit SC ACHS [facility]; Protocol Last Admin: 11/27/17 17:20 Dose: 4 u Methimazole (Tapazole) 20 mg PO Q6H [facility] Last Admin: 11/27/17 17:20 Dose: 20 mg Potassium Chloride (K-Dur 20 Meq Er Tab) 40 meq PO DAILY [facility] Last Admin: 11/27/17 09:48 Dose: 40 meq Propranolol HCl (Inderal La) 60 mg PO DAILY [facility] Last Admin: 11/27/17 09:48 Dose: 60 mg Saccharomyces Boulardii (Florastor) 250 mg PO BID [facility] Last Admin: 11/27/17 17:21 Dose: 250 mg Physical Exam - Constitutional Appears: Well, Non-toxic, No Acute Distress - Head Exam Head Exam: ATRAUMATIC, NORMOCEPHALIC - Eye Exam Eye Exam: Normal appearance. absent: Conjunctival injection, Scleral icterus - ENT Exam ENT Exam: Mucous Membranes Moist, Normal Oropharynx - Respiratory Exam Respiratory Exam: NORMAL BREATHING PATTERN. absent: Accessory Muscle Use, Respiratory Distress - Cardiovascular Exam Cardiovascular Exam: RRR - GI/Abdominal Exam GI & Abdominal Exam: Soft, Tenderness (RUQ tenderness to palpation). absent: Distended, Rebound, Rigid - Extremities Exam Extremities exam: Positive for: pedal pulses present. Negative for: calf tend erness, pedal edema - Neurological Exam Neurological exam: Alert, Oriented x3 - Psychiatric Exam Psychiatric exam: Normal Affect, Normal Mood Results - Vital Signs Recent Vital Signs: Last Vital Signs Temp 97.7 F 11/27/17 16:00 Pulse 87 11/27/17 16:00 Resp 18 11/27/17 16:00 BP 107/38 L 11/27/17 16:00 Pulse Ox 100 11/27/17 16:00 - Labs Result Diagrams: 11/27/17 06:31 11/27/17 06:32 Labs: Laboratory Results - last 24 hr 11/25/17 11/25/17 11/26/17 06:29 06:29 21:12 WBC RBC Hgb Hct MCV MCH MCHC RDW Plt Count MPV Neut % (Auto) Lymph % (Auto) [place] % (Auto) Eos % (Auto) Baso % (Auto) Neut # (Auto) Lymph # (Auto) [place] # (Auto) Eos # (Auto) Baso # (Auto) Sodium Potassium Chloride Carbon Dioxide Anion Gap BUN Creatinine Est GFR ( Amer) Est GFR (Non-Af Amer) POC Glucose (mg/dL) 242 H Random Glucose Calcium Total Bilirubin AST ALT Alkaline Phosphatase Total Protein Albumin Globulin Albumin/Globulin Ratio Thyroglobulin, Quant 10.5 Thyroperoxidase Ab >900 H Thyroglobulin Antibody >1000 H Infectious [place] Assay Influenza Typ A,B (EIA) Blood Parasites Smear 11/26/17 11/26/17 11/27/17 22:39 22:40 06:31 WBC 4.0 L RBC 4.77 Hgb 12.3 Hct 37.1 MCV 77.7 L MCH 25.9 L MCHC 33.3 RDW 13.0 Plt Count 93 L MPV 10.3 Neut % (Auto) 54.5 Lymph % (Auto) 31.5 [place] % (Auto) 5.9 Eos % (Auto) 7.6 H Baso % (Auto) 0.5 Neut # (Auto) 2.2 Lymph # (Auto) 1.3 [place] # (Auto) 0.2 Eos # (Auto) 0.3 Baso # (Auto) 0.0 Sodium Potassium Chloride Carbon Dioxide Anion Gap BUN Creatinine Est GFR ( Amer) Est GFR (Non-Af Amer) POC Glucose (mg/dL) Random Glucose Calcium Total Bilirubin AST ALT Alkaline Phosphatase Total Protein Albumin Globulin Albumin/Globulin Ratio Thyroglobulin, Quant Thyroperoxidase Ab Thyroglobulin Antibody Infectious [place] Assay Influenza Typ A,B (EIA) Negative for flu a/b Blood Parasites Smear Negative 11/27/17 11/27/17 11/27/17 06:32 06:32 07:15 WBC RBC Hgb Hct MCV MCH MCHC RDW Plt Count MPV Neut % (Auto) Lymph % (Auto) [place] % (Auto) Eos % (Auto) Baso % (Auto) Neut # (Auto) Lymph # (Auto) [place] # (Auto) Eos # (Auto) Baso # (Auto) Sodium 138 Potassium 3.3 L Chloride 108 H Carbon Dioxide 18 L Anion Gap 15 BUN 5 L Creatinine 0.3 L Est GFR ( Amer) > 60 Est GFR (Non-Af Amer) > 60 POC Glucose (mg/dL) 127 H Random Glucose 146 H Calcium 8.4 L Total Bilirubin 3.2 H AST 72 H D ALT 102 H Alkaline Phosphatase 230 H Total Protein 6.0 L Albumin 3.0 L Globulin 3.0 Albumin/Globulin Ratio 1.0 Thyroglobulin, Quant Thyroperoxidase Ab Thyroglobulin Antibody Infectious [place] Assay Negative Influenza Typ A,B (EIA) Blood Parasites Smear 11/27/17 11/27/17 11:26 16:29 WBC RBC Hgb Hct MCV MCH MCHC RDW Plt Count MPV Neut % (Auto) Lymph % (Auto) [place] % (Auto) Eos % (Auto) Baso % (Auto) Neut # (Auto) Lymph # (Auto) [place] # (Auto) Eos # (Auto) Baso # (Auto) Sodium Potassium Chloride Carbon Dioxide Anion Gap BUN Creatinine Est GFR ( Amer) Est GFR (Non-Af Amer) POC Glucose (mg/dL) 191 H 204 H Random Glucose Calcium Total Bilirubin AST ALT Alkaline Phosphatase Total Protein Albumin Globulin Albumin/Globulin Ratio Thyroglobulin, Quant Thyroperoxidase Ab Thyroglobulin Antibody Infectious [place] Assay Influenza Typ A,B (EIA) Blood Parasites Smear - Imaging and Cardiology US - abdomen Status: Image reviewed by me, Report reviewed by me CT scan - abdomen Status: Image reviewed by me, Report reviewed by me HIDA scan Status: Image reviewed by me, Report reviewed by me Assessment & Plan - Assessment and Plan (Free Text) Assessment: 37F with fevers, RUQ abdominal pain, and positive HIDA scan Plan: no plans for immediate surgical intervention--patient's pain improved, tolerating diet, abdomen not acute Continue to trend CBC, CMP Continue ABX per ID HHD Recommend MRCP d/t elevated bilirubin F/U GI recs Further surgical planning pending clinical course and MRCP--low suspicion at this time for alcalculus cholecystitis or cholangitis but will continue to monitor Discussed with Dr. Salmeron, who agrees with above Tracie Douglas, PGY2
--- NOTE | 2017-11-27 18:17 | CARD ---
APPROVED REPORT Date of service: 11/27/2017 EXAM: Two-dimensional and M-mode echocardiogram with Doppler and color Doppler. Other Information Quality : GoodRhythm : INDICATION Infection:Rule out subacute bacterial endocarditis Murmur RISK FACTORS Hypertension Diabetes 2D DIMENSIONS IVSd1.0 (0.7-1.1cm)Aortic Root (2D)2.6 (2.0-3.7cm) LVDd4.1 (3.9-5.9cm)PWd0.9 (0.7-1.1cm) LA Jmfhfl67 (18-58mL)LVDs2.9 (2.5-4.0cm) FS (%) 28.6 %LVEF (%)62.0 (>50%) LVEF (Jauregui's)62.96 %IVC0.00 cm M-Mode DIMENSIONS RVDd2.43 (2.1-3.2cm)Left Atrium (MM)3.93 (2.5-4.0cm) IVSd0.85 (0.7-1.1cm)Aortic Root2.47 (2.2-3.7cm) LVDd4.62 (4.0-5.6cm)Aortic Cusp Exc.1.77 (1.5-2.0cm) PWd0.82 (0.7-1.1cm)FS (%) 41 % LVDs2.73 (2.0-3.8cm)LVEF (%)67 (>50%) Aortic Valve AoV Peak Seigzvwy256.4cm/sAoV VTI33.3cmAO Peak GR.15mmHg AO Mean GR.8mmHg Mitral Valve MV E Hoygdwid466.6cm/sMV A Dgrbphxo72.7cm/sE/A ratio1.2 LMCI381.00 cm/s TDI Lateral E' Peak V12.42cm/sMedial E' Peak V8.93cm/sE/Lateral E'8.3 E/Medial E'11.6 Tricuspid Valve TR Peak Kbghpmuo118jw/sTR Peak Gr.11eySxLQJR31fjAy LEFT VENTRICLE The left ventricle is normal size. There is normal left ventricular wall thickness. Left ventricle systolic function is normal. The Ejection Fraction is 60-65%. There is normal LV segmental wall motion. The left ventricular diastolic function is normal. There is no ventricular septal defect visualized. RIGHT VENTRICLE The right ventricle is normal size. The right ventricular systolic function is normal. ATRIA The left atrium size is normal. The right atrium size is normal. AORTIC VALVE The aortic valve is tri-cuspid. The aortic valve is normal in structure. No aortic regurgitation is present. There is no aortic valvular stenosis. MITRAL VALVE The mitral valve is normal in structure. There is no evidence of mitral valve prolapse. Mitral regurgitation is trace. TRICUSPID VALVE The tricuspid valve is normal in structure. There is trace tricuspid regurgitation. Right ventricular systolic pressure is estimated at less than 30 mmHg. There is no pulmonary hypertension. PULMONIC VALVE The pulmonary valve is normal in structure. There is no pulmonic valvular regurgitation. GREAT VESSELS The aortic root is normal in size. The ascending aorta is normal in size. The IVC is normal in size and collapses >50% with inspiration. PERICARDIAL EFFUSION There is no pericardial effusion. <Conclusion> Left ventricle systolic function is normal. The Ejection Fraction is 60-65%. The left ventricular diastolic function is normal. Mitral regurgitation is trace. No evidence of vegetations, however, transesophageal echo is more specific to rule out endocarditis.
--- NOTE | 2017-11-27 20:00 | CP.PCM.PN ---
Subjective - Date & Time of Evaluation Date of Evaluation: 11/27/17 Time of Evaluation: 07:00 - Subjective Subjective: Pt examined at bedside. No acute events overnight. Pt reports she is feeling much better today. She reports 1 loose BM hermelindo morning. Pt reports RUQ abd pain improving. Denies neck pain, chest pain, SOB, abd pain, nausea, vomiting. Objective - Vital Signs/Intake and Output Vital Signs (last 24 hours): Temp Pulse Resp BP Pulse Ox 97.7 F 96 H 18 107/38 L 100 11/27/17 16:00 11/27/17 18:00 11/27/17 16:00 11/27/17 16:00 11/27/17 16:00 Intake and Output: 11/27/17 11/28/17 18:59 06:59 Intake Total 2560 Output Total 1000 Balance 1560 - Medications Medications: Current Medications Acetaminophen (Tylenol 325mg Tab) 975 mg PO ONCE PRN PRN Reason: Fever >100.4 F Last Admin: 11/25/17 07:17 Dose: 975 mg Dextrose (Dextrose 50% Inj) 0 ml IV STAT PRN; Protocol PRN Reason: Hypoglycemia Protocol Dextrose (Glutose 15) 0 gm PO ONCE PRN; Protocol PRN Reason: Hypoglycemia Protocol Diphenhydramine HCl (Benadryl) 25 mg PO Q6 PRN PRN Reason: Itching / Pruritus Last Admin: 11/25/17 16:36 Dose: 25 mg Famotidine (Pepcid) 40 mg PO DAILY [facility] Last Admin: 11/27/17 09:49 Dose: 40 mg Glucagon (Glucagen Diagnostic Kit) 0 mg IM STAT PRN; Protocol PRN Reason: Hypoglycemia Protocol Heparin Sodium (Porcine) (Heparin) 5,000 units SC Q8 [facility] Last Admin: 11/27/17 14:54 Dose: 5,000 units Moxifloxacin HCl (Avelox Iv 400mg/250ml Ns) 400 mg in 250 mls @ 167 mls/hr IVPB Q24H [facility]; Protocol Last Admin: 11/27/17 17:19 Dose: 167 mls/hr Potassium Chloride 10 meq/ (Sodium Chloride) 1,005 mls @ 100 mls/hr IV .Q10H3M [facility] Last Admin: 11/27/17 18:28 Dose: 100 mls/hr Ibuprofen (Motrin Tab) 600 mg PO QID PRN PRN Reason: Fever >100.4 F Last Admin: 11/27/17 08:06 Dose: 600 mg Insulin Glargine (Lantus) 20 unit SC HS [facility] Last Admin: 11/26/17 22:08 Dose: 20 u Insulin Human Regular (Novolin R) 0 unit SC ACHS [facility]; Protocol Last Admin: 11/27/17 17:20 Dose: 4 u Methimazole (Tapazole) 20 mg PO Q6H [facility] Last Admin: 11/27/17 17:20 Dose: 20 mg Potassium Chloride (K-Dur 20 Meq Er Tab) 40 meq PO DAILY [facility] Last Admin: 11/27/17 09:48 Dose: 40 meq Propranolol HCl (Inderal La) 60 mg PO DAILY [facility] Last Admin: 11/27/17 09:48 Dose: 60 mg Saccharomyces Boulardii (Florastor) 250 mg PO BID [facility] Last Admin: 11/27/17 17:21 Dose: 250 mg - Labs Labs: 11/27/17 06:31 11/27/17 06:32 PT 12.1 SECONDS (9.7-12.2) 11/24/17 01:24 INR 1.1 11/24/17 01:24 APTT 34 SECONDS (21-34) 11/24/17 01:24 - Constitutional Appears: No Acute Distress - Head Exam Head Exam: ATRAUMATIC, NORMAL INSPECTION, NORMOCEPHALIC - Eye Exam Eye Exam: EOMI, Normal appearance - ENT Exam ENT Exam: Mucous Membranes Moist, Normal Exam - Respiratory Exam Respiratory Exam: Clear to Ausculation Bilateral, NORMAL BREATHING PATTERN - Cardiovascular Exam Cardiovascular Exam: Tachycardia, REGULAR RHYTHM, +S1, +S2 - GI/Abdominal Exam GI & Abdominal Exam: Soft, Normal Bowel Sounds. absent: Tenderness - Extremities Exam Extremities Exam: Normal Inspection, Pedal Edema (1+). absent: Calf Tenderness - Neurological Exam Neurological Exam: Alert, Awake, Oriented x3 - Psychiatric Exam Psychiatric exam: Normal Affect, Normal Mood - Skin Skin Exam: Dry, Intact, Normal Color (rolando), Warm Assessment and Plan - Assessment and Plan (Free Text) Assessment: 37 yo F w/ PMHx of Hyperthyroidism, DM2, HTN admitted w/ possible thyroiditis Hyperthyroiditis -methimazole 20mg q6 -f/u autoimmune workup -endo consult Dr. Espinoza Transaminitis -wosening LFTs -RUQ pain improving -HIDA failed to show gallbladder indicating obstruction -RUQ US revealed no acute findings -moxi 400mg qd -Sx consult, Dr. Salmeron HTN -propanolol 60mg po qd DM2 -ISS Ppx -pepcid 40mg -heparin 5000U q8 Dispo f/u w/ sx recs, consider discharging on methimizole
--- NOTE | 2017-11-27 20:35 | PN ---
DATE: 11/27/2017 ENDO FOLLOWUP NOTE LOCATION: In ICU room 6. SUBJECTIVE: This is a 37-year-old with recent overt hyperthyroidism noted both historically, clinically, and biochemically, currently tolerating thereof. LABORATORY DATA: Her repeat chemistry showed a BUN of 5, sodium 138, potassium of 3.3, chloride 108, CO2 18, glucose 146, and creatinine 0.3. She is being followed closely by Infectious Disease for ongoing septic workup at this time. Her previous thyroid studies showed a T4 of 23.4 with a TSH of less than 0.02 and a thyroglobulin level of 10.5. ASSESSMENT AND PLAN: So at this time, we will continue the same high-dose supra-pharmacologic dosing of Tapazole given as 20 mg every 6 hours as given. Upon discharge, we would recommend a much lower dosing of Tapazole given as 20 mg twice a day as given. We will obtain serial chemistries and supplement accordingly as needed. We will also obtain serial thyroid studies and adjust the dose regimen accordingly. We will follow. Azul Espinoza MD [facility] # [id number]
[2017-11-27 20:48] VITALS: RESP 20
[2017-11-27] MEDS: (Lantus) Insulin Glargine, Recombinant SC SCH (21:27)
[2017-11-28 06:01] LABS: BASO % 0.5 % (0.0-2.0); EOS # 0.3 K/uL (0.0-0.7); EOS % 7.5 % (0.0-4.0); HEMOGLOBIN 11.8 g/dL (11.0-16.0); LYMPH # 1.6 K/uL (1.0-4.3); LYMPH % 41.2 % (20.0-40.0); MEAN CELL VOLUME 77.3 fL (81.0-99.0); MEAN CORPUSCULAR HEMOGLOBIN 26.4 pg (27.0-31.0); MEAN CORPUSCULAR HGB CONC 34.2 g/dL (33.0-37.0); MEAN PLATELET VOLUME 9.7 fL (7.2-11.7); MONO # 0.3 K/uL (0.0-0.8); MONO % 6.7 % (0.0-10.0); NEUT # 1.7 K/uL (1.8-7.0); NEUT % 44.1 % (50.0-75.0); NRBC % 0.1 % (0.0-2.0); RBC 4.48 Mil/uL (3.80-5.20); RED CELL DISTRIBUTION WIDTH 13.6 % (11.5-14.5); WHITE BLOOD COUNT 3.8 K/uL (4.8-10.8)
[2017-11-28 06:15] LABS: BILIRUBIN,DIRECT 2.8 mg/dL (0.0-0.4)
[2017-11-28 06:30] LABS: ALT/SGPT 97 U/L (9-52); AST/SGOT 67 U/L (14-36); BLOOD UREA NITROGEN 3 mg/dL (7-17); CALCIUM 8.5 mg/dl (8.6-10.4); GFR NON-AFRICAN AMERICAN > 60
[2017-11-28 06:49] LABS: T4 > 24.9 ug/dL (5.5-11.0)
[2017-11-28] MEDS: (Novolin R) Insulin Human Regular 100 units/ml vial SC SCH ×3 (07:43→19:08)
[2017-11-28] MEDS ORDERED: Gadodiamide 287 mg/ml 20 ml IV ONE (10:56)
--- NOTE | 2017-11-28 11:28 | CP.PCM.PN ---
Subjective - Date & Time of Evaluation Date of Evaluation: 11/28/17 Time of Evaluation: 11:25 - Subjective Subjective: f/u cholecystitis. Denies Rb, melena, abdom pain, nausea, fever, chills, SZ, Cp Objective - Vital Signs/Intake and Output Vital Signs (last 24 hours): Temp Pulse Resp BP Pulse Ox 97.3 F L 79 20 97/59 L 98 11/28/17 08:23 11/28/17 08:23 11/28/17 08:23 11/28/17 08:23 11/28/17 08:23 Intake and Output: 11/28/17 11/28/17 06:59 18:59 Intake Total 1300 Output Total 900 Balance 400 - Medications Medications: Current Medications Acetaminophen (Tylenol 325mg Tab) 975 mg PO ONCE PRN PRN Reason: Fever >100.4 F Last Admin: 11/25/17 07:17 Dose: 975 mg Dextrose (Dextrose 50% Inj) 0 ml IV STAT PRN; Protocol PRN Reason: Hypoglycemia Protocol Dextrose (Glutose 15) 0 gm PO ONCE PRN; Protocol PRN Reason: Hypoglycemia Protocol Diphenhydramine HCl (Benadryl) 25 mg PO Q6 PRN PRN Reason: Itching / Pruritus Last Admin: 11/25/17 16:36 Dose: 25 mg Famotidine (Pepcid) 40 mg PO DAILY [facility] Last Admin: 11/27/17 09:49 Dose: 40 mg Glucagon (Glucagen Diagnostic Kit) 0 mg IM STAT PRN; Protocol PRN Reason: Hypoglycemia Protocol Heparin Sodium (Porcine) (Heparin) 5,000 units SC Q8 [facility] Last Admin: 11/28/17 05:01 Dose: 5,000 units Moxifloxacin HCl (Avelox Iv 400mg/250ml Ns) 400 mg in 250 mls @ 167 mls/hr IVPB Q24H [facility]; Protocol Last Admin: 11/27/17 17:19 Dose: 167 mls/hr Potassium Chloride 10 meq/ (Sodium Chloride) 1,005 mls @ 100 mls/hr IV .Q10H3M [facility] Last Admin: 11/28/17 06:48 Dose: Not Given Ibuprofen (Motrin Tab) 600 mg PO QID PRN PRN Reason: Fever >100.4 F Last Admin: 11/28/17 04:58 Dose: 600 mg Insulin Glargine (Lantus) 20 unit SC HS [facility] Last Admin: 11/27/17 21:27 Dose: 20 u Insulin Human Regular (Novolin R) 0 unit SC [facility]; Protocol Last Admin: 11/28/17 07:43 Dose: Not Given Methimazole (Tapazole) 20 mg PO Q6H [facility] Last Admin: 11/28/17 05:15 Dose: 20 mg Potassium Chloride (K-Dur 20 Meq Er Tab) 40 meq PO DAILY [facility] Last Admin: 11/27/17 09:48 Dose: 40 meq Propranolol HCl (Inderal La) 60 mg PO DAILY [facility] Last Admin: 11/27/17 09:48 Dose: 60 mg Saccharomyces Boulardii (Florastor) 250 mg PO BID [facility] Last Admin: 11/27/17 17:21 Dose: 250 mg - Labs Labs: 11/28/17 05:52 11/28/17 05:52 PT 12.1 SECONDS (9.7-12.2) 11/24/17 01:24 INR 1.1 11/24/17 01:24 APTT 34 SECONDS (21-34) 11/24/17 01:24 - Constitutional Appears: Well - Respiratory Exam Respiratory Exam: Clear to Ausculation Bilateral - Cardiovascular Exam Cardiovascular Exam: RRR - GI/Abdominal Exam GI & Abdominal Exam: Soft, Normal Bowel Sounds. absent: Guarding, Tenderness, Mass, Rebound - Neurological Exam Neurological Exam: Alert, Awake, Oriented x3 Assessment and Plan (1) Fever Status: Acute (2) Hyperthyroidism Status: Acute (3) Transaminasemia Assessment & Plan: +HIDA- consider cholecystitis- but no signs of cholecystits- no ruq pain, no abnormal GB on sono, CT. HIDA can be false pos related to elev TB., check MRCP. Rec- f/u LFTs, check MRCP f/u pulm nodules discussed now with Med Attending. Status: Acute (4) Diabetes mellitus Status: Acute
[2017-11-28] MEDS: Propranolol 60 mg ER Cap PO SCH (11:41)
[2017-11-28] MEDS: Saccharomyces Boulardi 250 mg Cap PO SCH ×2 (11:43→19:05)
[2017-11-28] MEDS: Potassium Chloride 20 mEq ER Tab PO SCH (11:43)
[2017-11-28] MEDS ORDERED: Potassium Chloride 20 mEq ER Tab PO ONE (14:00)
--- NOTE | 2017-11-28 14:09 | CP.PCM.PN ---
Subjective - Date & Time of Evaluation Date of Evaluation: 11/28/17 Time of Evaluation: 07:10 - Subjective Subjective: Surgery progress note Pt seen and examined this AM. Denies any pain, fevers, nausea, tolerating her diet Objective - Vital Signs/Intake and Output Vital Signs (last 24 hours): Temp Pulse Resp BP Pulse Ox 97.3 F L 85 20 97/59 L 98 11/28/17 08:23 11/28/17 12:02 11/28/17 08:23 11/28/17 08:23 11/28/17 08:23 Intake and Output: 11/28/17 11/28/17 06:59 18:59 Intake Total 1300 Output Total 900 Balance 400 - Medications Medications: Current Medications Acetaminophen (Tylenol 325mg Tab) 975 mg PO ONCE PRN PRN Reason: Fever >100.4 F Last Admin: 11/25/17 07:17 Dose: 975 mg Dextrose (Dextrose 50% Inj) 0 ml IV STAT PRN; Protocol PRN Reason: Hypoglycemia Protocol Dextrose (Glutose 15) 0 gm PO ONCE PRN; Protocol PRN Reason: Hypoglycemia Protocol Diphenhydramine HCl (Benadryl) 25 mg PO Q6 PRN PRN Reason: Itching / Pruritus Last Admin: 11/25/17 16:36 Dose: 25 mg Famotidine (Pepcid) 40 mg PO DAILY [facility] Last Admin: 11/28/17 11:42 Dose: 40 mg Glucagon (Glucagen Diagnostic Kit) 0 mg IM STAT PRN; Protocol PRN Reason: Hypoglycemia Protocol Heparin Sodium (Porcine) (Heparin) 5,000 units SC Q8 [facility] Last Admin: 11/28/17 13:25 Dose: 5,000 units Moxifloxacin HCl (Avelox Iv 400mg/250ml Ns) 400 mg in 250 mls @ 167 mls/hr IVPB Q24H [facility]; Protocol Last Admin: 11/27/17 17:19 Dose: 167 mls/hr Ibuprofen (Motrin Tab) 600 mg PO QID PRN PRN Reason: Fever >100.4 F Last Admin: 11/28/17 04:58 Dose: 600 mg Insulin Glargine (Lantus) 20 unit SC HS [facility] Last Admin: 11/27/17 21:27 Dose: 20 u Insulin Human Regular (Novolin R) 0 unit SC ACHS [facility]; Protocol Last Admin: 11/28/17 11:59 Dose: Not Given Methimazole (Tapazole) 20 mg PO Q6H [facility] Last Admin: 11/28/17 11:42 Dose: 20 mg Potassium Chloride (K-Dur 20 Meq Er Tab) 40 meq PO DAILY [facility] Last Admin: 11/28/17 11:43 Dose: 40 meq Propranolol HCl (Inderal La) 60 mg PO DAILY [facility] Last Admin: 11/28/17 11:41 Dose: 60 mg Saccharomyces Boulardii (Florastor) 250 mg PO BID [facility] Last Admin: 11/28/17 11:43 Dose: 250 mg - Labs Labs: 11/28/17 05:52 11/28/17 05:52 PT 12.1 SECONDS (9.7-12.2) 11/24/17 01:24 INR 1.1 11/24/17 01:24 APTT 34 SECONDS (21-34) 11/24/17 01:24 - Constitutional Appears: Well, Non-toxic, No Acute Distress - Head Exam Head Exam: ATRAUMATIC, NORMOCEPHALIC - Eye Exam Eye Exam: Normal appearance. absent: Conjunctival injection, Scleral icterus - ENT Exam ENT Exam: Mucous Membranes Moist, Normal Oropharynx - Respiratory Exam Respiratory Exam: NORMAL BREATHING PATTERN. absent: Accessory Muscle Use, Respiratory Distress - Cardiovascular Exam Cardiovascular Exam: RRR - GI/Abdominal Exam GI & Abdominal Exam: Distended (mild), Soft. absent: Tenderness - Extremities Exam Extremities Exam: absent: Calf Tenderness, Pedal Edema, Tenderness - Neurological Exam Neurological Exam: Alert, Awake, Oriented x3 - Psychiatric Exam Psychiatric exam: Normal Affect, Normal Mood - Skin Skin Exam: Dry, Normal Color, Warm Assessment and Plan - Assessment and Plan (Free Text) Assessment: 37F with fevers and RUQ pain Plan: Continue to monitor for fevers--no significant fever past 24 hours Continue to trend CBC/cmp f/u mrcp F/U GI recs Continue HHD carb controlled diet No surgical intervention planned at this time--further recs pending studies results Discussed with Dr. Faviola Douglas, PGY2
[2017-11-28 15:36] LABS: SOURCE STOOL
[2017-11-28 16:37] VITALS: BP 103/66; TEMP 98.2; O2SAT 99
--- NOTE | 2017-11-28 17:19 | MRI ---
MRI abdomen without/with IV contrast MRCP Indication: Right upper quadrant pain, hyperbilirubinemia, rule out CBD stone. Technique: Multiplanar, multi sequence magnetic resonance images of the abdomen were obtained without and with the administration of intravenous gadolinium using a multi phase abdomen protocol. A total of 1313 images submitted for review Comparison: Abdominal ultrasound performed 11/27/17 Findings: The gallbladder appears unremarkable. There is no intrahepatic biliary ductal dilatation. The common bile duct appears within normal limits in caliber and tapers distally. The pancreatic duct appears within normal limits of caliber. No filling defects are seen in the common bile duct or pancreatic duct. Borderline splenomegaly. The liver, pancreas and adrenal glands appear unremarkable. The kidneys enhance symmetrically. No hydronephrosis or obstructing calculus identified. No enlarged abdominal lymph nodes are appreciated. Included upper abdominal bowel loops appear within normal limits of caliber. Limited views of the inferior thorax appear unremarkable. Impression: Borderline splenomegaly. No filling defects seen within the common bile duct which appears within normal limits of caliber. Preliminary impression was provided by [employer].
[2017-11-28 18:13] VITALS: PULSE 87
--- NOTE | 2017-11-28 18:33 | CP.PCM.DIS ---
Provider - Provider Date of Admission: 11/24/17 02:30 Attending physician: Ashleigh Balbuena MD Time Spent in preparation of Discharge (in minutes): 29 Diagnosis - Discharge Diagnosis (1) Thyroiditis Status: Acute (2) Diabetes mellitus Status: Acute (3) Hypertension Status: Acute Hospital Course - Lab Results Lab Results: Micro Results 11/25/17 13:43 Blood-Venous Blood Culture - Preliminary NO GROWTH AFTER 3 DAYS 11/25/17 13:43 Blood-Venous Blood Culture - Preliminary NO GROWTH AFTER 3 DAYS 11/25/17 10:53 Stool Stool Culture - Final NO SALMONELLA, SHIGELLA OR CAMPYLOBACTER ISOLATED. 11/24/17 01:40 Blood Blood Culture - Preliminary NO GROWTH AFTER 4 DAYS 11/24/17 01:39 Blood Blood Culture - Preliminary NO GROWTH AFTER 4 DAYS 11/25/17 17:09 Stool Ova and Parasite Concentrate Exam - Final 11/24/17 06:19 Naris MRSA Culture (Admit) - Final MRSA NOT DETECTED 11/24/17 01:54 Urine,Clean Catch Urine Culture - Final No Growth (<1,000 CFU/ML) Most Recent Lab Values WBC 3.8 K/uL (4.8-10.8) L 11/28/17 05:52 RBC 4.48 Mil/uL (3.80-5.20) 11/28/17 05:52 Hgb 11.8 g/dL (11.0-16.0) 11/28/17 05:52 Hct 34.6 % (34.0-47.0) 11/28/17 05:52 MCV 77.3 fL (81.0-99.0) L 11/28/17 05:52 MCH 26.4 pg (27.0-31.0) L 11/28/17 05:52 MCHC 34.2 g/dL (33.0-37.0) 11/28/17 05:52 RDW 13.6 % (11.5-14.5) 11/28/17 05:52 Plt Count 102 K/uL (130-400) L 11/28/17 05:52 MPV 9.7 fL (7.2-11.7) 11/28/17 05:52 Neut % (Auto) 44.1 % (50.0-75.0) L 11/28/17 05:52 Lymph % (Auto) 41.2 % (20.0-40.0) H 11/28/17 05:52 Borden % (Auto) 6.7 % (0.0-10.0) 11/28/17 05:52 Eos % (Auto) 7.5 % (0.0-4.0) H 11/28/17 05:52 Baso % (Auto) 0.5 % (0.0-2.0) 11/28/17 05:52 Neut # (Auto) 1.7 K/uL (1.8-7.0) L 11/28/17 05:52 Lymph # (Auto) 1.6 K/uL (1.0-4.3) 11/28/17 05:52 [place]orden # (Auto) 0.3 K/uL (0.0-0.8) 11/28/17 05:52 Eos # (Auto) 0.3 K/uL (0.0-0.7) 11/28/17 05:52 Baso # (Auto) 0.0 K/uL (0.0-0.2) 11/28/17 05:52 PT 12.1 SECONDS (9.7-12.2) 11/24/17 01:24 INR 1.1 11/24/17 01:24 APTT 34 SECONDS (21-34) 11/24/17 01:24 pO2 37 mm/Hg (30-55) 11/24/17 01:46 VBG pH 7.44 (7.32-7.43) H 11/24/17 01:46 VBG pCO2 36 mmHg (40-60) L 11/24/17 01:46 VBG HCO3 24.7 mmol/L 11/24/17 01:46 VBG Total CO2 25.6 mmol/L (22-28) 11/24/17 01:46 VBG O2 Sat (Calc) 72.4 % (40-65) H 11/24/17 01:46 VBG Base Excess 0.6 mmol/L (0.0-2.0) 11/24/17 01:46 VBG Potassium 3.5 mmol/L (3.6-5.2) L 11/24/17 01:46 Sodium 132.0 mmol/l (132-148) 11/24/17 01:46 Chloride 102.0 mmol/L (98-107) 11/24/17 01:46 Glucose 266 mg/dl (65-105) H 11/24/17 01:46 Lactate 1.3 mmol/L (0.7-2.1) 11/24/17 01:46 Sodium 137 mmol/L (132-148) 11/28/17 05:52 Potassium 3.3 mmol/L (3.6-5.2) L 11/28/17 05:52 Chloride 106 mmol/L (98-107) 11/28/17 05:52 Carbon Dioxide 19 mmol/L (22-30) L 11/28/17 05:52 Anion Gap 15 (10-20) 11/28/17 05:52 BUN 3 mg/dL (7-17) L 11/28/17 05:52 Creatinine 0.2 mg/dL (0.7-1.2) L 11/28/17 05:52 Est GFR ( Amer) > 60 11/28/17 05:52 Est GFR (Non-Af Amer) > 60 11/28/17 05:52 POC Glucose (mg/dL) 174 mg/dL (65-110) H 11/28/17 17:15 Random Glucose 122 mg/dL (65-105) H 11/28/17 05:52 Hemoglobin A1c 9.8 % (4.2-6.5) H 11/24/17 05:47 Lactic Acid 1.9 mmol/L (0.7-2.1) 11/25/17 13:43 Calcium 8.5 mg/dl (8.6-10.4) L 11/28/17 05:52 Phosphorus 3.8 mg/dL (2.5-4.5) 11/24/17 01:24 Magnesium 1.7 mg/dL (1.6-2.3) 11/26/17 06:30 Total Bilirubin 3.3 mg/dL (0.2-1.3) H 11/28/17 05:52 Direct Bilirubin 2.8 mg/dL (0.0-0.4) H 11/28/17 05:52 AST 67 U/L (14-36) H 11/28/17 05:52 ALT 97 U/L (9-52) H 11/28/17 05:52 Alkaline Phosphatase 236 U/L (38-126) H 11/28/17 05:52 Total Protein 5.9 g/dL (6.3-8.3) L 11/28/17 05:52 Albumin 3.0 g/dL (3.5-5.0) L 11/28/17 05:52 Globulin 2.9 gm/dL (2.2-3.9) 11/28/17 05:52 Albumin/Globulin Ratio 1.0 (1.0-2.1) 11/28/17 05:52 Lipase 44 U/L (23-300) 11/26/17 07:45 Procalcitonin 0.28 NG/ML (0.19-0.49) 11/26/17 06:30 Free T4 5.53 ng/dL (0.78-2.19) H 11/28/17 05:52 Thyroxine (T4) > 24.9 ug/dL (5.5-11.0) H 11/28/17 05:52 Total T3 3.61 nmol/L (1.49-2.60) H 11/24/17 03:13 Thyroglobulin, Quant 10.5 ng/mL (2.8-40.9) 11/25/17 06:29 TSH 3rd Generation < 0.02 mIU/L (0.46-4.68) L 11/28/17 05:52 Venous Blood Potassium 3.5 mmol/L (3.6-5.2) L 11/24/17 01:46 Urine Color Yellow (YELLOW) 11/24/17 01:54 Urine Clarity Clear (Clear) 11/24/17 01:54 Urine pH 6.0 (5.0-8.0) 11/24/17 01:54 Ur Specific [place] 1.030 (1.003-1.030) 11/24/17 01:54 Urine Protein Negative mg/dL (NEGATIVE) 11/24/17 01:54 Urine Glucose (UA) 3+ mg/dL (Normal) H 11/24/17 01:54 Urine Ketones Negative mg/dL (NEGATIVE) 11/24/17 01:54 Urine Blood Negative (NEGATIVE) 11/24/17 01:54 Urine Nitrate Negative (NEGATIVE) 11/24/17 01:54 Urine Bilirubin Negative (NEGATIVE) 11/24/17 01:54 Urine Urobilinogen Normal mg/dL (0.2-1.0) 11/24/17 01:54 Ur Leukocyte Esterase Neg Angela/uL (Negative) 11/24/17 01:54 Urine WBC (Auto) < 1 /hpf (0-5) 11/24/17 01:54 Urine RBC (Auto) < 1 /hpf (0-3) 11/24/17 01:54 Ur Squamous Epith Cells 1 /hpf (0-5) 11/24/17 01:54 Urine HCG, Qual Negative (NEGATIVE) 11/25/17 19:39 Stl Cryptosporidium Ag Not detected (Not detected) 11/27/17 06:36 Thyroperoxidase Ab >900 IU/mL (<9) H 11/25/17 06:29 Thyroglobulin Antibody >1000 IU/mL (< OR = 1) H 11/25/17 06:29 C. difficile Ag & Toxin Negative (NEGATIVE) 11/25/17 16:43 Cryptosp/Giardia Source Stool 11/27/17 06:36 Hepatitis A IgM Ab Negative (NEGATIVE) 11/25/17 18:01 Hep Bs Antigen Negative (NEGATIVE) 11/25/17 18:01 Hep B Core IgM Ab Negative (NEGATIVE) 11/25/17 18:01 Hepatitis C Antibody Negative (NEGATIVE) 11/25/17 18:01 HIV 1&2 Antibody Screen Negative (NEGATIVE) 11/25/17 18:01 Infectious Borden Assay Negative (NEGATIVE) 11/27/17 06:32 Influenza Typ A,B (EIA) Negative for flu a/b (NEGATIVE) 11/26/17 22:39 Ur L.pneumophila Ag Negative (NEGATIVE) 11/26/17 08:41 Blood Parasites Smear Negative (NEGATIVE) 11/26/17 22:40 - Hospital Course Hospital Course: Patient evaluated and treated at [facility] from 11/24/17-11/28/17. Pt presented to ED with fevers. Blood work revealed elevated thyroxine, free T4 and T3. Thyroid ultrasound revealed thyromegaly and a 7mm nodule. Pt started on methimizole. Dr. Espinoza, endocrinology consulted. Patient's hyperglycemia was managed with an insulin sliding scale. Pt's hypertension was managed with propanolol ER 60mg. During course of treatment, patient has RUQ pain. HIDA showed possible obstruction, however repeat studies including an abdominal ultrasound and MRCP showed no evidence of cholecystitis. Patient stable for d ischarge home with prescriptions and to follow up outpatient as advised. HPI on admission: "Pt is a 37yo F with PMH DM, HTN, hyperTH who presents to ED complaining of fever, chills, and cough for 3 days. She reports worsening of symptoms today, prompting her to come to ED. She reports taking advil and theraflu at home with little relief. She denies any sick contacts or recent travel. She reports associated nausea, palpitations, sweating, and abdominal pain. She denies any chest pain, dizziness, vomiting, diarrhea, dysuria." Refer to EMR for full record Discharge Exam - Head Exam Head Exam: ATRAUMATIC, NORMAL INSPECTION, NORMOCEPHALIC - Eye Exam Eye Exam: EOMI, Normal appearance - ENT Exam ENT Exam: Mucous Membranes Moist, Normal Oropharynx - Neck Exam Neck exam: Thyromegaly - Respiratory Exam Respiratory Exam: NORMAL BREATHING PATTERN, UNREMARKABLE - Cardiovascular Exam Cardiovascular Exam: REGULAR RHYTHM, +S1, +S2 - GI/Abdominal Exam GI & Abdominal Exam: Normal Bowel Sounds, Soft, Unremarkable - Extremities Exam Extremities exam: normal inspection - Neurological Exam Neurological exam: Alert, Oriented x3 - Psychiatric Exam Psychiatric exam: Normal Affect, Normal Mood - Skin Skin Exam: Dry, Intact, Normal Color, Warm Discharge Plan - Discharge Medications Prescriptions: Insulin Glargine, Recombina [Lantus] 20 unit SC HS #1 vial Isosorbide Mononitrate ER [Imdur ER] 60 mg PO DAILY #60 tab levoFLOXacin [Levaquin] 500 mg PO DAILY #5 tab methIMAzole [Tapazole] 20 mg PO BID #40 tab - Follow Up Plan Condition: GUARDED Disposition: HOME/ ROUTINE Additional Instructions: Patient is stable for discharge home. Patient is being given prescriptions for methimizole 20mg to be taken 2 times per day. Propanolol ER 60mg per day, Lantus 20u to be taken at bedtime. Patient has a prescription for a glucometer, syringes, lancets and test strips to check sugar and administer medicine. Patient is also to take Levaquin 500mg once per day for 5 days. It is important that patient return to clinic within one week pof discharge to follow up on appropriate medications. Patient should have blood work, including liver enzymes rechecked. Patient needs to follow up with the clinic or proposal coordinator within one week of discharge to check sugars and TSH. Patient is advised to return to the ED with any worsening of symptoms. Referrals: Mary Kay Solomon MD [Staff Provider] -
[2017-11-28] MEDS: Moxifloxacin IV 400mg/250ml NS 400 MG/250 ML BAG IVPB SCH (19:06)
[2017-11-29] MEDS ORDERED: Potassium Chloride 20 mEq ER Tab PO ONE (12:23)
[2017-11-30 11:31] LABS: ANA PATTERN HOMOGENOUS
[2017-11-30 19:17] LABS: TSI 511 % baseline (<140)
[2017-12-01 13:16] LABS: RUBELLA AB (IGG) 4.51 index
== END 2017-11-28 20:45 | disposition home or self-care (01) | DRG 645 ==
LOC: C.ER 00:36 → C.9I 02:30 → C.9E 03:19 → C.9I 03:57 → C.5S 11-28 06:17
PROVIDERS: ADMIT Internal Medicine; ATTEND Internal Medicine
DX: E06.3 Autoimmune thyroiditis (principal); E05.01 Thyrotoxicosis with diffuse goiter with thyrotoxic crisis or storm; E11.65 Type 2 diabetes mellitus with hyperglycemia; E83.42 Hypomagnesemia; I10 Essential (primary) hypertension; K59.00 Constipation, unspecified; T36.0X5A Adverse effect of penicillins, initial encounter; Z90.710 Acquired absence of both cervix and uterus; Z83.3 Family history of diabetes mellitus; Z98.891 History of uterine scar from previous surgery

== ENCOUNTER 2017-12-06 03:27 | Emergency (ER) | payer OTHER ==
[2017-12-06 03:28] VITALS: BMI 37.0
[2017-12-06 03:49] VITALS: RESP 20; TEMP 98.2; O2SAT 98
--- NOTE | 2017-12-06 03:51 | C.PDOC ---
History Of Present Illness 37 year old female presents to the emergency department with complaints of a rash for the last four days, presumed to be brought on by new medication use. Patient was admitted on 11-24-17 for hyperthyroidism, and was started on Inderal and Metamizole, and states that after taking the medications for three days she developed an itchy rash which progressively worsened, and it is now the fourth consecutive day with these rash symptoms. Patient denies trouble swallowing, breathing, and denies swelling of the tongue and lips. Chief Complaint (Nursing): Allergic Reaction History Per: Patient History/Exam Limitations: no limitations Onset/Duration Of Symptoms: Days (4) Current Symptoms Are (Timing): Still Present Context: Other (New medications) Possible Cause: Medication Associated Symptoms: Skin Rash. denies: Swelling, Dyspnea, Trouble Swallowing, Itching, Chest Pain Home/EMS Treatment: None Past Medical History Reviewed: Historical Data, Nursing Documentation, Vital Signs Vital Signs: Last Vital Signs Temp 98.2 F 12/06/17 03:42 Pulse 112 H 12/06/17 03:42 Resp 20 12/06/17 03:42 BP 142/90 12/06/17 03:42 Pulse Ox 98 12/06/17 03:42 - Medical History PMH: Diabetes, HTN, Hyperthyroidism, Hypothyroidism (NO MEDICATIONS AT THIS TIME) Denies: Anxiety, Chronic Kidney Disease - [facility] Procedures BILAT TUBAL DESTRUCT NEC (02/28/14) LOW CERVICAL (02/28/14) Family History: States: Diabetes, Hypertension - Social History Hx Tobacco Use: No Hx Alcohol Use: No Hx Substance Use: No - Immunization History Hx Tetanus Toxoid Vaccination: Yes Hx Influenza Vaccination: No Hx Pneumococcal Vaccination: No Review Of Systems Except As Marked, All Systems Reviewed And Found Negative. ENT: Negative for: Mouth Swelling Cardiovascular: Negative for: Chest Pain, Palpitations Respiratory: Negative for: Shortness of Breath Skin: Positive for: Rash Physical Exam - Physical Exam Appears: Non-toxic, No Acute Distress Skin: Warm, Dry, Rash (diffuse urticaria) Head: Atraumatic, Normacephalic Eye(s): bilateral: Normal Inspection, PERRL, EOMI Nose: Normal Oral Mucosa: Moist Tongue: Normal Appearing, No Swelling Lips: Normal Appearing, No Swelling Gingiva: Normal Appearing, No Swelling Neck: Normal, Supple Chest: Symmetrical, No Tenderness Cardiovascular: Rhythm Regular, No Murmur Respiratory: No Rales, No Rhonchi, No Wheezing Neurological/Psych: Oriented x3, Normal Speech, Normal Cognition ED Course And Treatment O2 Sat by Pulse Oximetry: 98 (RA) Pulse Ox Interpretation: Normal Progress Note: Plan: Benadryl 50mg PO. Pepcid 40mg PO. Prednisone 60mg PO. Patient instructed to stop taking her old medications. Patient instructed to follow-up with Dr. Solomon on Thursday12-07-17. Disposition - Disposition Referrals: [facility] [Outside] Disposition: HOSPITALIZED Disposition Time: 05:02 Condition: IMPROVED Additional Instructions: Stop taking your new medications and see your PMD on Thursday, December 07, 2017. Return to ED immediately if feel worse. 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 - Scribe Statement The provider has reviewed the documentation as recorded by the Scribe (Gregorio Nix) All medical record entries made by the Scribe were at my direction and personally dictated by me. I have reviewed the chart and agree that the record accurately reflects my personal performance of the history, physical exam, medical decision making, and the department course for this patient. I have also personally directed, reviewed, and agree with the discharge instructions and disposition.
[2017-12-06 06:14] VITALS: BP 128/72; PULSE 84
== END 2017-12-06 06:02 | disposition home or self-care (01) ==
LOC: C.ER 03:27
DX: L50.0 Allergic urticaria (principal)

== ENCOUNTER 2018-04-22 11:26 | Outpatient (CLI) | payer OTHER | END 2018-04-22 11:27 | disposition home or self-care (01) | LOC: C.LAB 11:26 | DX: E05.80 Other thyrotoxicosis without thyrotoxic crisis or storm (principal); E11.65 Type 2 diabetes mellitus with hyperglycemia ==

== ENCOUNTER 2018-06-03 09:07 | Outpatient (CLI) | payer OTHER | END 2018-06-03 09:08 | disposition home or self-care (01) | LOC: C.LAB 09:07 | DX: E05.80 Other thyrotoxicosis without thyrotoxic crisis or storm (principal); E11.65 Type 2 diabetes mellitus with hyperglycemia ==